=== PATIENT | female | born 1995 | race African-American/Black ===

== ENCOUNTER 2020-12-22 15:27 | Inpatient (IN) | payer OTHER, SELFPAY ==
[2020-12-22] VITALS (17 sets, daily range): BP systolic 116–141; BP diastolic 76–88; PULSE 117–145; RESP 12–32; TEMP 36.2–36.8; O2SAT 98–100
--- NOTE | ~2020-12-22 | US_ITS ---
CORRECTED REPORT EXAM DESCRIPTION DESCRIPTION AND TECHNIQUE UPDATED. 12/23/2020 US OB <= US OB <=14 wk fetus w TV DATE: 12/23/2020 08:07 INDICATION: Assess viability TECHNIQUE: Real-time imaging and Doppler analysis COMPARISON: None FINDINGS: Uterus measures 9.7 cm height, 6.6 cm AP and 6.7 cm transverse dimension. A pole is identified with heart rate of 173 bpm. Yolk sac is identified. There is a heterogeneous hypoechoic chorionic bump projecting into the gestational sac, measuring up to 9 x 14 x 18 mm dimension. This is reported to occur in approximately 0.15% to 0.7% . This may be due to a small hematoma. One report in the literature (Journal of Ultrasound In Medicine: A case of a chorionic bump: New sonographic-histopathologic findings with review of the literature; 04/05/2017) suggested extensive necrosis within a decidualized endometrium as an important component in the formation of this abnormality. There is dispute as to whether or not this entity is associated with a poor prognosis for the . Follow-up ultrasound imaging is recommended. Bruin-rump length measures 2.14 cm, consistent with estimated gestational age of 8 weeks 5 days +/- 5 days; REENA by ultrasound is 07/30/2021, compared to 07/28/2021 by LMP Right ovary 2.4 x 1.6 x 1.5 cm. Left ovary 2.3 x 2.4 x 2.4 cm. No pelvic mass or abnormal pelvic fluid collection is evident. IMPRESSION: Chorionic bump; see discussion above. Follow-up ultrasound imaging is recommended. Estimated gestational age of 8 weeks 5 days +/- 5 days; REENA by ultrasound is 07/30/2021 Reviewed, dictated and finalized at [facility]. Reviewed, dictated and finalized at location [facility]. [employer] MTDD
--- NOTE | ~2020-12-22 | US_ITS ---
EXAMINATION: US right upper quadrant EXAM DATE: 12/23/2020 08:00 INDICATION: Abnormal liver function tests. With nausea and emesis, 8 weeks . TECHNIQUE: Multiple grayscale and Doppler images of the abdomen right upper quadrant were obtained (b y a technologist who performed the scan) and subsequently reviewed. There is no prior study for niranjan see. FINDINGS: The pancreatic head and body are normal in appearance. The pancreatic tail is not visualized. The l iver has normal echogenicity and contour. There are no focal liver lesions identified. There is no evidence of intrahepatic biliary duct dilation. Portal venous flow was seen in the hepatopedal, nor mal direction and has normal Doppler waveform. No right-sided hydronephrosis. Common bile duct measures 2 mm, which is normal. The gallbladder wall is normal in thickness, with ex pected amount of distention. No sonographic evidence of pericholecystic fluid. There is probably so me thick bile in the gallbladder. No focal stones or polyps identified. Technologist performing exam reports patient did not demonstrate sonographic Villagran's sign. Please note that this sign is less r eliable in patients who have received pain medication. IMPRESSION: 1. Gallbladder with layering proteinaceous fluid. 2. No stones or cholecystitis. Reviewed, dictated and finalized at [facility]. [employer]
--- NOTE | 2020-12-22 15:52 | PC.NURSE ---
pt going from hospital to hospital each and every time she becomes nauseaous
--- NOTE | 2020-12-22 15:53 | ED.GENADULT ---
HPI - General Adult General Chief complaint: Nausea/Vomiting/Diarrhea <Latisha Huff PA-C - Last Filed: 01/15/21 12:32> Stated complaint: 8 weeks/nausea <CHRISTIN Francis Last Filed: 01/15/21 12:32> Time Seen by Provider: 12/22/20 15:51 <CHRISTIN Francis Last Filed: 01/15/21 12:32> Source: patient <CHRISTIN Francis Last Filed: 01/15/21 12:32> Mode of arrival: ambulatory <CHRISTIN Francis Last Filed: 01/15/21 12:32> Limitations: no limitations <CHRISTIN Francis Last Filed: 01/15/21 12:32> History of Present Illness HPI narrative: 25-year-old female who is 8 weeks and 5 days based on last menstrual period, she has not seen her OB yet. She has had chronic vomiting for at least 2 weeks. She was hospitalized at [facility] last week for the same complaint she was prescribed famotidine, B12 and metoclopramide. She states that she takes these medications but she vomits them right back up. This is her second she did not have this problem with her first . She also states that she had two episodes of diarrhea in the last 2 days. She denies any cramping or vaginal discharge bleeding. She does not have an OB appointment till January 15. <Latisha Huff PA-C - Last Filed: 01/15/21 12:32> Onset (ago): week(s) <Latisha Huff PA-C - Last Filed: 01/15/21 12:32> Related Data Allergies/adverse reactions: Allergies Allergy/AdvReac Type Severity Reaction Status Date / Time No Known Allergies Allergy Unverified 10/05/16 08:18 <CHRISTIN Francis Last Filed: 01/15/21 12:32> Review of Systems Review of Systems: All systems reviewed & are unremarkable except as noted in HPI and below <Latisha Huff PA-C - Last Filed: 01/15/21 12:32> [facility] Past Medical History Medical History: Medical History (Updated 12/23/20 @ 08:48 by Shilpi Mcginnis MD) (normal spontaneous vaginal delivery) <Latisha Huff PA-C - Last Filed: 01/15/21 12:32> Surgical History Surgical History: Surgical History (Updated 12/22/20 @ 18:16 by Paul Sams MD) H/O removal of cyst LEFT UPPER EYELID <Latisha Huff PA-C - Last Filed: 01/15/21 12:32> Family History Family History: Family History (Updated 12/22/20 @ 18:18 by Paul Sams MD) Father Well adult Mother Well adult Sibling Well adult Sibling Well adult <Latisha Huff PA-C - Last Filed: 01/15/21 12:32> Social History Social History: Social History (Updated 12/22/20 @ 18:19 by Paul Sams MD) Social History: Single. 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 Alcohol intake: never Substance use: never Gender identity (if verbalized by the patient): Female Spiritual care concerns: No <Latisha Huff PA-C - Last Filed: 01/15/21 12:32> Exam Const: General: no acute distress and alert <Latisha Huff PA-C - Last Filed: 01/15/21 12:32> Orientation/consciousness: patient oriented x3 <Latisha Huff PA-C - Last Filed: 01/15/21 12:32> HENMT: Mouth: Yes moist mucous membranes <Latisha Huff PA-C - Last Filed: 01/15/21 12:32> Eyes: Conjunctivae: conjunctivae normal <CHRISTIN Francis Last Filed: 01/15/21 12:32> Pupils: Equal, round and reactive pupils present <Latisha Huff PA-C - Last Filed: 01/15/21 12:32> Resp: Effort & Inspection: normal respiratory effort <Latisha Huff PA-C - Last Filed: 01/15/21 12:32> Auscultation: clear to auscultation bilaterally <Latisha Huff PA-C - Last Filed: 01/15/21 12:32> Cardio: Rate: tachycardic (128) <CHRISTIN Francis Last Filed: 01/15/21 12:32> Rhythm: regular rhythm <CHRISTIN Francis Last Filed: 01/15/21 12:32> GI: GI Palp: Yes Soft to palpation and Yes Tenderness to palpation present (GI) (difusely tender to light palpation) <CHRISTIN Francis
[2020-12-22 16:03] LABS: Basophils Percent Auto 0.2 % (0.2-1.2); Eosinophils Percent Auto 0.2 % (0-4.4); Hematocrit 39.9 % (37.0-47.0); Hemoglobin 13.8 g/dL (12.0-15.0); Immature Granulocyte Absolute 0.07 K/mm3 (0.00-0.031); Immature Granulocyte Percent A 0.6 % (0-0.5); Lymphocytes Absolute Auto 1.03 K/mm3 (0.9-3.2); Lymphocytes Percent Auto 8.4 % (18.3-44.2); Mean Corpuscular HGB Conc 34.6 g/dl (32-36); Mean Corpuscular Hemoglobin 29.5 pg (26-34); Mean Corpuscular Volume 85.3 fl (80-100); Mean Platelet Volume 9.9 fl (7.4-10.4); Monocytes Absolute Auto 0.9 K/mm3 (0.1-0.6); Monocytes Percent Auto 7.1 % (2.6-8.5); Neutrophils Absolute Auto 10.3 K/mm3 (1.3-6.7); Neutrophils Percent Auto 83.5 % (45.5-73.1); Platelet Count Result 278 k/mm3 (150-375); Red Blood Count 4.68 M/mm3 (4.2-5.4); Red Cell Distribution Width 11.2 % (11.5-14.5); White Blood Count 12.3 K/mm3 (4.5-10.0)
[2020-12-22 16:15] LABS: Alanine Aminotransferase 495 U/L (4-35); Albumin Level 4.4 g/dL (3.5-5.1); Alkaline Phosphatase 96 U/L (38-126); Anion Gap 9 mmol/L (8-16); Aspartate Amino Transferase 231 U/L (14-36); Bilirubin,Total 1.3 mg/dL (0.2-1.3); Blood Urea Nitrogen 17 mg/dL (7-17); Calcium 9.7 mg/dL (8.4-10.2); Carbon Dioxide 25 mmol/L (22-30); Chloride 97 mmol/L (98-107); Estimated CRCL calculation 130 ml/min; Estimated Glomerular Filt Rate > 60; Glucose 104 mg/dL (65-105); Lipase 486 U/L (23-300); Potassium 3.2 mmol/L (3.4-5.0); Sodium 131 mmol/L (137-145)
[2020-12-22] MEDS: DEXTROSE 5%/0.9% SOD CHL 1,000 ML 999 ML IV CONT (16:45)
[2020-12-22 17:23] LABS: Add Urine Microscopic? YES; Appearance Urine Clear (Clear); Bacteria Urine Trace /hpf; Bilirubin Urine Negative (Negative); Blood Urine Negative (Negative); Color Urine Amber (Yellow); Glucose Urine UA 3+ mg/dL (Negative); Ketones Urine 2+ mg/dL (Negative); Leukocyte Esterase Ur Negative LEU/UL (Negative); Mucus Urine Heavy /lpf; Nitrate Urine Negative (Negative); Protein Urine 2+ mg/dL (Negative); RBC Urine 0-2 /hpf (0-2); Specific Grav Ur 1.026 (1.001-1.035); Squamous Epithelial Cell Urine Rare /hpf (Few); WBC Urine 0-3 /hpf
--- NOTE | 2020-12-22 18:10 | PM.IMHP ---
H&P: HPI History of Present Illness Date/Time: 12/22/20 18:10 Chief Complaint: nausea with emesis Narrative: Klaus Valdivia is a 25 year old female who is currently 8 weeks and is /Ab0. About 2 weeks ago she began having nausea with emesis. She tried Zofran and then Reglan without success. She has yet to see her primary OB for appointment. However she has been taking vitamins. Over the last several days she has been sipping cold water and has been unable to keep anything else down. She has lost several lb in the last 8 weeks. With her vomiting she has experienced some tingling in the perioral region and in her feet. She has no dizziness. She has no fevers or chills. No headache. No sinus or ear congestion. No cough. No shortness of breath. No chest pain. She has epigastric pain only with retching. No abdominal pain otherwise. Over the last 2 days she has had a couple of loose stools per day. She denied dysuria hematuria or back pain. She denied hematemesis or blood in urine or stool. She denied drug alcohol and tobacco use. She denied recent travel exposure to ill individuals. She has been laid off work for the last couple of weeks so has not been out much. Review of Systems Review of Systems: All systems reviewed & are unremarkable except as noted in HPI and below [facility] Surgical History Surgical History (Updated 12/22/20 @ 18:16 by Paul Sams MD) H/O removal of cyst LEFT UPPER EYELID Family History Family History (Updated 12/22/20 @ 18:18 by Paul Sams MD) Father Well adult Mother Well adult Sibling Well adult Sibling Well adult Social History Social History (Updated 12/22/20 @ 18:19 by Paul Sams MD) Social History: Single. 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 Normal effort. HEART: NL S1/S2, regular, no murmur ABDOMEN: BS+, soft, MILD TENDERNESS TO PALPATION IN THE EPIGASTRIUM AND BILATERAL UPPER QUADRANTS EXTREMITIES: No cyanosis, edema, or clubbing. Pedal pulses intact. NEUROLOGIC: CN intact and symmetric to inspection. MUSCULOSKELETAL: Tone and strength symmetric. PSYCH: Alert. Oriented to person, place, and time. H&P: Results Labs Labs: Short CBC 12/22/20 Range/Units 15:55 WBC 12.3 H (4.5-10.0) K/mm3 Hgb 13.8 (12.0-15.0) g/dL Hct 39.9 (37.0-47.0) % Plt Count 278 (150-375) k/mm3 BMP 12/22/20 15:55 Sodium 131 L Potassium 3.2 L Chloride 97 L Carbon Dioxide 25 BUN 17 Creatinine 0.50 L Glucose 104 Calcium 9.7 Liver Function 12/22/20 Range/Units 15:55 Total Bilirubin 1.3 (0.2-1.3) mg/dL AST 231 H (14-36) U/L ALT 495 H (4-35) U/L Alkaline Phosphatase 96 (38-126) U/L Albumin 4.4 (3.5-5.1) g/dL Urine 12/22/20 Range/Units 17:01 Urine Color Carmen (Yellow) Urine Appearance Clear (Clear) Urine pH 6.0 (5.0-9.0) Ur Specific [place] 1.026 (1.001-1.035) Urine Protein 2+ H (Negative) mg/dL Urine Glucose (UA) 3+ H (Negative) mg/dL Assessment and Plan Assessment and plan (1) Hyperemesis gravidarum: Code(s): O21.0 - Mild hyperemesis gravidarum Status: Acute Assessment and Plan: Similar issues, though less severe, with her 1st about 4 ye
[2020-12-22] MEDS: SODIUM CHLORIDE 0.9% IV 1,000 ML 999 ML IV CONT (18:17)
[2020-12-22] MEDS: DEXTROSE 5%/0.9% SOD CHL 1,000 ML 100 ML IV CONT (18:21)
--- NOTE | 2020-12-22 18:21 | PC.NURSE ---
vorb for d5 ns, 1l bolus from noel beltre asked to change fluid from d5ns to 1l ns pt received 300ml of the 2nd bag of d5 ns
--- NOTE | 2020-12-22 18:30 | PC.NURSE ---
[address] Mcginnis per phone. Pt will be admitted to OB from ER for vomiting, elevated liver enzymes per Dr. Sams with Dr. Mcginnis/Sapna consulting. Orders for ultrasound in AM and repeat of labs (ordered per Dr. Sams).
--- NOTE | 2020-12-22 19:50 | PC.NURSE ---
Admission orders clarified per Dr. Sams.
--- NOTE | 2020-12-22 19:50 | OBADM ---
This patient, Klaus Valdivia, admitted to the OB room OB Post 117 for observation. Patient/family oriented to hospital policies and general routines including ID bracelet, bed and alarms, visiting hours, pain management, procedures, bathroom and other care routines, personal items, smoking policy, room service/diet, and visiting hours. Patient/Family are encouraged to report perceived risks to care and to ask questions if they do not understand what they are told or what they should do.
[2020-12-22] MEDS: DEXTROSE 5%/0.9% SOD CHL 1,000 ML 50 ML IV CONT (20:40)
[2020-12-22] MEDS: PROMETHAZINE HCL 25 MG/ML AMPUL 12.5 MG IV PUSH (20:45)
[2020-12-22] MEDS: PYRIDOXINE HCL 100 MG/ML VIAL (*SPC) 50 MG IV PUSH (20:55)
[2020-12-22] MEDS: THIAMINE HCL 200 MG/2 ML VIAL 100 MG IV PUSH (20:59)
[2020-12-22] MEDS: FOLIC ACID 1 MG/0.2 ML INJ IV PUSH (21:04)
[2020-12-22] MEDS: MAGNESIUM SULF 2 GM/WATER 50ML 2 GM/50 ML BAG IVPB (21:11)
[2020-12-23] VITALS (8 sets, daily range): BP systolic 101–129; BP diastolic 56–70; PULSE 98–113; RESP 13–15; TEMP 36.4–37; BMI 26.6
--- NOTE | 2020-12-23 01:15 | PC.NURSE ---
Addendum entered by Osito Overton RN 12/23/20 01:17: TIME NOTED 1899 Original Note: 1899 Pt arrives to OB via wheelchar. Pt seen in ER with nausea vomiting. Pt states she has had intermittent vomiting for past 2 weeks. Pt denies any pain on arrival. Pt has nausea currently. States vomited once in ER. No vomiting currently.
[2020-12-23] MEDS: PROMETHAZINE HCL 25 MG/ML AMPUL 12.5 MG IV PUSH ×4 (02:28→19:43)
--- NOTE | 2020-12-23 02:30 | PC.NURSE ---
Pt has been sleeping. No vomiting at this time. Pt states nausea is better with Phenergan and when she is sleeping.
--- NOTE | 2020-12-23 05:08 | PC.NURSE ---
Pt continues to sleep. Lab work drawn per order.
[2020-12-23 05:12] LABS: Hematocrit 33.7 % (37.0-47.0); Hemoglobin 11.3 g/dL (12.0-15.0); Mean Corpuscular HGB Conc 33.5 g/dl (32-36); Mean Corpuscular Hemoglobin 29.7 pg (26-34); Mean Corpuscular Volume 88.7 fl (80-100); Mean Platelet Volume 10.2 fl (7.4-10.4); Platelet Count Result 219 k/mm3 (150-375); Red Cell Distribution Width 11.2 % (11.5-14.5); White Blood Count 9.6 K/mm3 (4.5-10.0)
[2020-12-23 05:38] LABS: Alanine Aminotransferase 446 U/L (4-35); Albumin Level 3.4 g/dL (3.5-5.1); Alkaline Phosphatase 68 U/L (38-126); Anion Gap 4 mmol/L (8-16); Aspartate Amino Transferase 197 U/L (14-36); Bilirubin,Total 1.1 mg/dL (0.2-1.3); Blood Urea Nitrogen 12 mg/dL (7-17); Calcium 8.6 mg/dL (8.4-10.2); Carbon Dioxide 26 mmol/L (22-30); Chloride 105 mmol/L (98-107); Estimated CRCL calculation 130 ml/min; Estimated Glomerular Filt Rate > 60; Glucose 106 mg/dL (65-105); Lipase 588 U/L (23-300); Potassium 3.4 mmol/L (3.4-5.0); Sodium 135 mmol/L (137-145)
[2020-12-23 05:39] LABS: Alanine Aminotransferase 456 U/L (4-35); Albumin Level 3.4 g/dL (3.5-5.1); Alkaline Phosphatase 69 U/L (38-126); Anion Gap 5 mmol/L (8-16); Aspartate Amino Transferase 209 U/L (14-36); Bilirubin,Total 1.1 mg/dL (0.2-1.3); Blood Urea Nitrogen 11 mg/dL (7-17); Calcium 8.7 mg/dL (8.4-10.2); Carbon Dioxide 26 mmol/L (22-30); Chloride 104 mmol/L (98-107); Estimated CRCL calculation 130 ml/min; Estimated Glomerular Filt Rate > 60; Glucose 105 mg/dL (65-105); Phosphorus 3.4 mg/dL (2.5-4.5); Potassium 3.3 mmol/L (3.4-5.0); Sodium 135 mmol/L (137-145)
[2020-12-23 06:26] LABS: Hepatitis B Surface Antigen Negative (Negative)
[2020-12-23 06:27] LABS: Thyroid Stimulating Hormone Reflex < 0.015 uIU/mL (0.465-4.68)
[2020-12-23 06:31] LABS: HAV RESULT Negative (Negative)
[2020-12-23 06:44] LABS: Hepatitis C Virus Antibody Negative (Negative)
[2020-12-23 06:54] LABS: Free T4 Free Thyroxine Reflex 5.65 ng/dL (0.78-2.19)
--- NOTE | 2020-12-23 07:28 | PC.NURSE ---
Pt transported to US per wheelchair
--- NOTE | 2020-12-23 08:44 | PM.IMHP ---
H&P: HPI History of Present Illness Date/Time: 12/23/20 08:44 Chief Complaint: nausea and vomiting Narrative: Klaus Valdivia is a 25 year old female at 8 weeks EGA here with severe hyperemesis. Onset of N/V 2 weeks ago, so she went to her local ER x 2 and received fluids and nausea meds. States Tay did not work. She continued to have N/V and went to [facility] due to being high risk center. She was admitted for a day and received fluids and initially did well with B6, pepcid, and reglan. She was home for a day and again with N/V. She thought it would get better so stayed home for a week and continued her meds. She delivered [address] Alejo so decided to come to ER here last pm. Does not complain of pain unless she is vomiting. No fevers. No other complaints except fatigue. Best guess is she has lost about 10 pounds in last 2 weeks. [facility] Past Medical History Medical History (Updated 12/23/20 @ 08:48 by Shilpi Mcginnis MD) (normal spontaneous vaginal delivery) Surgical History Surgical History (Updated 12/22/20 @ 18:16 by Paul Sams MD) H/O removal of cyst LEFT UPPER EYELID Family History Family History (Updated 12/22/20 @ 18:18 by Paul Sams MD) Father Well adult Mother Well adult Sibling Well adult Sibling Well adult Social History Social History (Updated 12/22/20 @ 18:19 by Paul Sams MD) Social History: Single. 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 Alcohol intake: never Substance use: never Gender identity (if verbalized by the patient): Female Meds Home Medications and Allergies Home Medications Medication Instructions Recorded Confirmed Type metoclopramide HCl 5 mg PO TID PRN 12/23/20 12/23/20 History Allergies Allergy/AdvReac Type Severity Reaction Status Date / Time No Known Allergies Allergy Unverified 10/05/16 08:18 Vital Signs Vital Signs - 24 hr 12/22/20 15:33 12/22/20 16:37 12/22/20 16:45 Temperature 97.1 F L Pulse Rate 145 H 122 H 118 H Respiratory Rate 18 26 H 18 Blood Pressure 116/85 135/84 Pulse Oximetry 98 12/22/20 16:46 12/22/20 17:01 12/22/20 17:02 Temperature Pulse Rate 117 H 138 H 130 H Respiratory Rate 23 H 25 H 29 H Blood Pressure 139/88 Pulse Oximetry 100 100 12/22/20 17:15 12/22/20 17:16 12/22/20 17:30 Temperature Pulse Rate 126 H 123 H 129 H Respiratory Rate 17 22 H 29 H Blood Pressure 136/86 Pulse Oximetry 100 100 100 12/22/20 17:31 12/22/20 17:45 12/22/20 17:46 Temperature Pulse Rate 132 H 120 H 120 H Respiratory Rate 32 H 16 19 Blood Pressure 119/80 133/86 Pulse Oximetry 100 100 100 12/22/20 18:00 12/22/20 18:01 12/22/20 18:15 Temperature Pulse Rate 121 H 118 H 118 H Respiratory Rate 19 15 12 Blood Pressure 128/84 121/85 Pulse Oximetry 100 100 100 12/22/20 18:16 12/22/20 19:08 12/23/20 00:05 Temperature 98.2 F Pulse Rate 131 H 119 H 106 H Respiratory Rate 27 H Blood Pressure 141/76 H 115/61 Pulse Oximetry 100 12/23/20 02:21 12/23/20 05:03 12/23/20 07:07 Temperature 97.9 F 98.2 F Pulse Rate 108 H 101 H Respiratory Rate Blood Pressure 101/57 L 129/70 Pulse Oximetry 12/23/20 08:03 Temperature 98.4 F Pulse Rate 113 H Respiratory Rate 15 Blood Pressure 126/68 Pulse Oximetry Exam Const: General: cooperative, comfortable and no acute distress Nutritional Appearance: average body habitus GI: Inspection: normal to inspection and distended GI Palp: Yes abdominal tenderness (mild upper) H&P: Results Labs Labs: Short CBC 12/22/20 12/23/20 Range/Units 15:55 04:48 WBC 12.3 H 9.6 (4.5-10.0) K/mm3 Hgb 13.8 11.3 L (12.0-15.0) g/dL Hct 39.9 33.7 L (37.0-47.0) % Plt Count 278 219 (150-375) k/mm3 BMP 12/22/20 12/23/20 12/23/20 15:55 04:48 04:48 Sodium 131 L 135 L 135 L Potassium 3.2 L 3.4 3.3 L Chloride 97 L 105 10
[2020-12-23] MEDS: PYRIDOXINE HCL 100 MG/ML VIAL (*SPC) 50 MG IV PUSH (09:18)
[2020-12-23] MEDS: FOLIC ACID 1 MG/0.2 ML INJ IV PUSH (09:18)
[2020-12-23] MEDS: THIAMINE HCL INJ 100 MG, FOLIC ACID INJ 1 MG, MULTIVITAMINS-12 INJ VIAL 1 5 ML, MULTIVI... 200 MG IV CONT (09:28)
--- NOTE | 2020-12-23 10:04 | PC.NURSE ---
0845- at bedside to assess pt, orders received. POC discussed with pt
--- NOTE | 2020-12-23 10:04 | PC.NURSE ---
Dr. Garcia at bedside to assess pt, no further orders received.
--- NOTE | 2020-12-23 12:52 | PM.IMPN ---
Progress Note: A&P Assessment and Plan (1) Hyperemesis gravidarum: Code(s): O21.0 - Mild hyperemesis gravidarum Status: Acute Assessment and Plan: Similar issues, though less severe, with her 1st about 4 years ago Treat with IV pyridoxine Banana bag and IV Phenergan Hopeful DC when she tolerates some diet orally (2) 2, currently : Code(s): Z34.90 - Encounter for supervision of normal , unspecified, unspecified trimester Status: Acute Assessment and Plan: According to her history she is approximately 9 weeks (3) Abnormal liver enzymes: Code(s): R74.8 - Abnormal levels of other serum enzymes Status: Acute Assessment and Plan: Suspect due to hyperemesis gravidarum Doubt acute fatty liver of Doubt acute cholecystitis or choledocholithiasis (4) Abnormal serum lipase level: Code(s): R74.8 - Abnormal levels of other serum enzymes Status: Acute Assessment and Plan: Likely due to intractable vomiting Subjective Date/time seen: 12/23/20 12:52 Interval history: Shea is a 25 year old female at 8 weeks EGA here with severe hyperemesis, pathology appears unlikely nausea vomiting secondary to early and exaggerated response. Pt is on a banana bag some nausea no abdominal pain today, continue to observe Review of Systems Review of Systems: All systems reviewed & are unremarkable except as noted in HPI and below Exam Narrative: Exam Narrative: Younger female tired and weak, dry appearing CHEST: Clear to auscultation. Normal effort. HEART: NL S1/S2, regular, no murmur ABDOMEN: BS+, soft NT EXTREMITIES: No cyanosis, edema, or clubbing. Pedal pulses intact. NEUROLOGIC: CN intact and symmetric to inspection. MUSCULOSKELETAL: Tone and strength symmetric. PSYCH: Alert. Oriented to person, place, and time. Objective Data Vital Signs Vital Signs: Vital Signs - 24 hr 12/22/20 15:33 12/22/20 16:37 12/22/20 16:45 Temperature 36.2 C L Pulse Rate 145 H 122 H 118 H Respiratory Rate 18 26 H 18 Blood Pressure 116/85 135/84 Pulse Oximetry 98 12/22/20 16:46 12/22/20 17:01 12/22/20 17:02 Temperature Pulse Rate 117 H 138 H 130 H Respiratory Rate 23 H 25 H 29 H Blood Pressure 139/88 Pulse Oximetry 100 100 12/22/20 17:15 12/22/20 17:16 12/22/20 17:30 Temperature Pulse Rate 126 H 123 H 129 H Respiratory Rate 17 22 H 29 H Blood Pressure 136/86 Pulse Oximetry 100 100 100 12/22/20 17:31 12/22/20 17:45 12/22/20 17:46 Temperature Pulse Rate 132 H 120 H 120 H Respiratory Rate 32 H 16 19 Blood Pressure 119/80 133/86 Pulse Oximetry 100 100 100 12/22/20 18:00 12/22/20 18:01 12/22/20 18:15 Temperature Pulse Rate 121 H 118 H 118 H Respiratory Rate 19 15 12 Blood Pressure 128/84 121/85 Pulse Oximetry 100 100 100 12/22/20 18:16 12/22/20 19:08 12/23/20 00:05 Temperature 36.8 C Pulse Rate 131 H 119 H 106 H Respiratory Rate 27 H Blood Pressure 141/76 H 115/61 Pulse Oximetry 100 12/23/20 02:21 12/23/20 05:03 12/23/20 07:07 Temperature 36.6 C 36.8 C Pulse Rate 108 H 101 H Respiratory Rate Blood Pressure 101/57 L 129/70 Pulse Oximetry 12/23/20 08:03 Temperature 36.9 C Pulse Rate 113 H Respiratory Rate 15 Blood Pressure 126/68 Pulse Oximetry Intake/Output Intake/Output: Intake & Output 12/20/20 12/21/20 12/22/20 12/23/20 23:59 23:59 23:59 23:59 Intake Total 2300 500 Output Total 200 300 Balance 2100 200 Meds/Results Medications: Active Medications Generic Name Dose Route Start Last Admin Trade Name Freq PRN Reason Stop Dose Admin Folic Acid 1 mg 12/23/20 09:00 12/23/20 09:18 Folic Acid 1 Mg/0.2 Ml Inj IV PUSH 1 mg QAM BEKAH Administration Amino Acids/Electrolytes/Dextrose 2,000 mls @ 80 mls/hr 12/23/20 14:00 Clinimix E 4.25%/5% Solution IV CONT .Q24H
--- NOTE | 2020-12-23 14:41 | PC.NURSE ---
1405- called to ask if is aware of TSH and T4 lab results. called, she stated labs are not WNL due to hyperemesis and pt does not need to be treated.
[2020-12-23] MEDS: AMINO ACIDS 4.25%/D5W/LYTES/CA 2,000 ML 80 ML IV CONT (15:28)
[2020-12-24] VITALS (7 sets, daily range): BP systolic 112–141; BP diastolic 53–118; PULSE 91–105; RESP 15–16; TEMP 36.8–37.2
[2020-12-24] MEDS: PROMETHAZINE HCL 25 MG/ML AMPUL 12.5 MG IV PUSH ×4 (01:55→19:52)
--- NOTE | 2020-12-24 01:59 | PC.NURSE ---
Pt has been sleeping. No complaints of pain or nausea. pt to call out if she needs anything.
[2020-12-24 05:48] LABS: Alanine Aminotransferase 340 U/L (4-35); Albumin Level 3.2 g/dL (3.5-5.1); Alkaline Phosphatase 57 U/L (38-126); Amylase 124 U/L (30-110); Anion Gap 5 mmol/L (8-16); Aspartate Amino Transferase 113 U/L (14-36); Bilirubin,Total 0.7 mg/dL (0.2-1.3); Blood Urea Nitrogen 12 mg/dL (7-17); Calcium 9.1 mg/dL (8.4-10.2); Carbon Dioxide 26 mmol/L (22-30); Chloride 105 mmol/L (98-107); Estimated CRCL calculation 158 ml/min; Estimated Glomerular Filt Rate > 60; Glucose 85 mg/dL (65-105); Lipase 539 U/L (23-300); Potassium 3.8 mmol/L (3.4-5.0); Sodium 136 mmol/L (137-145)
[2020-12-24 06:27] LABS: Magnesium 1.7 mg/dL (1.6-2.3)
--- NOTE | 2020-12-24 07:40 | PM.OBPNVD ---
OB - PN: Subj Subjective Date/time seen: 12/24/20 07:40 Interval history: Patient with mild nausea this am. She denies pain. OB - PN: Obj Data Labs CBC & Chem 7: 12/23/20 04:48 12/24/20 05:18 Labs: Laboratory Results - last 24 hr 12/24/20 12/24/20 05:18 06:00 Sodium 136 L Potassium 3.8 Chloride 105 Carbon Dioxide 26 Anion Gap 5 L BUN 12 Creatinine 0.40 L Estim Creat Clear Calc 158 Estimated GFR > 60 Glucose 85 Calcium 9.1 Magnesium 1.7 Total Bilirubin 0.7 AST 113 H ALT 340 H Alkaline Phosphatase 57 Total Protein 6.0 L Albumin 3.2 L Amylase 124 H Lipase 539 H Imaging Radiologist's impression: Impressions Upper Quadrant Ultrasound 12/23/20 08:08 IMPRESSION: 1. Gallbladder with layering proteinaceous fluid. 2. No stones or cholecystitis. Obstetrics Ultrasound 12/23/20 08:09 IMPRESSION: Chorionic bump; see discussion above. Follow-up ultrasound imaging is recommended. Estimated gestational age of 8 weeks 5 days +/- 5 days; REENA by ultrasound is 07/30/2021 OB - PN A/P Assessment and Plan (1) Hyperemesis gravidarum: Code(s): O21.0 - Mild hyperemesis gravidarum Status: Acute Assessment and Plan: VSS pulse in 90's since yesterday early afternoon. LFT's significantly down. Lipase down some. Other labs ok. Will slowly start full liquids today. Repeat LFTs, lipase, and thyroid function tomorrow. Time Spent With Patient Time: Total time spent is greater than 50% in coordination of care (as documented) at patient's floor/unit and/or counseling patient: Exam Const: General: comfortable and no acute distress GI: GI Palp: No abdominal tenderness
[2020-12-24] MEDS: THIAMINE HCL 200 MG/2 ML VIAL 100 MG IV PUSH (08:43)
[2020-12-24] MEDS: FOLIC ACID 1 MG/0.2 ML INJ IV PUSH (08:44)
[2020-12-24] MEDS: PYRIDOXINE HCL 100 MG/ML VIAL (*SPC) 50 MG IV PUSH (08:44)
--- NOTE | 2020-12-24 09:42 | PCDIET ---
Nutrition Follow-Up Complete: Nutrition Diagnosis: Inadequate oral intake related to hyperemesis as evidenced by nausea/vomiting and reported weight loss. Nutrition Goal: Patient to meet estimated nutritional needs and stabilize weight. Goal in progress. Patient remains on Clinimix E 4.25/5 at 80mL/hr with MD order to start full liquid diet today. Last recorded weight is 72.5 kg (12/22/20). Recommend obtaining new weight. Bowel Motility: Last documented BM on 12/21/20. Labs Reviewed: Hgb (11.3), Hct (33.7), Na (136), Cr (0.4), Lipase (539) Meds Noted: Folic Acid, Phenergan, Vitamin B6, Thiamine Additional Notes: Noted LFTs decreased today. Patient may best tolerate small, frequent meals with avoidance of high fat items. Would continue Clinimix until adequate oral intake is established. If intakes minimal, continue to recommend addition of 250mL 20% lipid daily for additional 500kcal and 55g fat. Nutrition Monitoring and Evaluation: Follow up every Wednesday/Wednesday.
[2020-12-24] MEDS: AMINO ACIDS 4.25%/D5W/LYTES/CA 2,000 ML 80 ML IV CONT (09:45)
--- NOTE | 2020-12-24 13:58 | PC.NURSE ---
1106- Spoke with Dr. Mcginnis, patient complaint of orange/yellow vaginal discharge. No new orders, will continue to monitor.
--- NOTE | 2020-12-24 14:07 | PM.IMPN ---
Progress Note: A&P Assessment and Plan (1) Abnormal serum lipase level: Code(s): R74.8 - Abnormal levels of other serum enzymes Status: Acute Assessment and Plan: Downtrending Likely dehydration due to n/v unable to feed Continue to monitor Supportive care IV hydration Daily I/O's (2) Abnormal liver enzymes: Code(s): R74.8 - Abnormal levels of other serum enzymes Status: Acute Assessment and Plan: Likely secondary to /hyperemesis gravidarum Alk phos is wnl ALT/AST 2:1 Also downtrending (3) Hyperemesis gravidarum: Code(s): O21.0 - Mild hyperemesis gravidarum Status: Acute Assessment and Plan: Advance diet as tolerated Supportive care Hydration (4) 2, currently : Code(s): Z34.90 - Encounter for supervision of normal , unspecified, unspecified trimester Status: Acute Assessment and Plan: Appreciate ticker wirer note 8 weeks gestation Will follow up in the outpatient setting with her usual doctor Subjective Date/time seen: 12/24/20 14:07 States that feels much better No new issues overnight Review of Systems Review of Systems: Narrative: Feeling some nausea, no new issues overnight. Constitutional: Comments: no fevers, no rigors, no chills. ENT: Comments: no nasal congestion, no throat pain. Cardiovascular: Comments: no pnd, no orthopnea, no chest pain. Respiratory: Comments: no cough, no sputum production. Gastrointestinal: Comments: some nausea to liquids Musculoskeletal: Comments: no muscle pain, no joint pain. Integumentary/Breasts: Comments: no rashes Neurologic: Comments: no tingling Exam Narrative: Exam Narrative: Lying in bed Const: General: cooperative, healthy appearing, comfortable, no acute distress, alert, awake and Physically active Nutritional Appearance: average body habitus Orientation/consciousness: patient oriented x3 Limitations: no limitations HENMT: Head: normocephalic Ears: hearing grossly normal bilaterally General nose exam: Normal external nose present Face and sinus: normal facial exam Eyes: Pupils: Equal, round and reactive pupils present EOM: EOMs intact bilaterally Neck: Neck: no lymphadenopathy, supple and no JVD Resp: Effort & Inspection: able to speak in complete sentences Auscultation: clear to auscultation bilaterally Cardio: Jugular venous distension: no JVD Rate: regular rate Rhythm: regular rhythm GI: GI Palp: Yes Soft to palpation and Yes No hepatosplenomegaly present Skin: Rashes: no rashes Neuro: General: CN's II-XI intact bilaterally Cranial nerves: Yes CN's II-XII intact bilaterally and Yes Equal, round and reactive pupils present Cognition (Neuro): normal cognition Speech: normal speech Motor exam (neuro): 5/5 motor strength present throughout Extrem: General: no pedal edema Objective Data Vital Signs Vital Signs: Vital Signs - 24 hr 12/23/20 19:00 12/23/20 19:46 12/24/20 05:21 Temperature 98.6 F Pulse Rate 98 94 Respiratory Rate Blood Pressure 109/56 L 114/62 12/24/20 07:44 12/24/20 08:30 12/24/20 13:44 Temperature 99.0 F Pulse Rate 91 105 H Respiratory Rate 16 Blood Pressure 118/53 L 112/55 L Intake/Output Intake/Output: Intake & Output 12/21/20 12/22/20 12/23/20 12/24/20 23:59 23:59 23:59 23:59 Intake Total 2300 500 2100 Output Total 200 1300 900 Balance 2100 -800 1200 Meds/Results Medications: Active Medications Generic Name Dose Route Start Last Admin Trade Name Alison PRN Reason Stop Dose Admin Folic Acid 1 mg 12/23/20 09:00 12/24/20 08:44 Folic Acid 1 Mg/0.2 Ml Inj IV PUSH 1 mg QAM BEKAH Administration Amino Acids/Electrolytes/Dextrose 2,000 mls @ 80 mls/hr 12/23/20 14:00 12/24/20 09:45 Clinimix E 4.25%/5% Solution IV CONT 80 mls/hr .Q24H BEKAH Administration Protocol Promethazine HCl 12.5 mg 12/23/20 14:00 12/24/20 13:42 Promethazine Hcl
[2020-12-25] MEDS: PROMETHAZINE HCL 25 MG/ML AMPUL 12.5 MG IV PUSH ×2 (01:45→07:58)
--- NOTE | 2020-12-25 01:47 | PC.NURSE ---
Pt has been sleeping. No complaints of pain or nausea. Pt has been given juices and popsicles and keeping liquids down.
[2020-12-25 05:20] VITALS: BP 124/67; PULSE 91
[2020-12-25] MEDS: AMINO ACIDS 4.25%/D5W/LYTES/CA 2,000 ML 80 ML IV CONT (05:28)
[2020-12-25 05:33] VITALS: TEMP 36.5
[2020-12-25 05:34] LABS: Alanine Aminotransferase 308 U/L (4-35); Albumin Level 3.4 g/dL (3.5-5.1); Alkaline Phosphatase 64 U/L (38-126); Anion Gap 6 mmol/L (8-16); Aspartate Amino Transferase 114 U/L (14-36); Bilirubin,Total 0.4 mg/dL (0.2-1.3); Blood Urea Nitrogen 11 mg/dL (7-17); Carbon Dioxide 24 mmol/L (22-30); Chloride 106 mmol/L (98-107); Estimated CRCL calculation 130 ml/min; Estimated Glomerular Filt Rate > 60; Glucose 93 mg/dL (65-105); Lipase 424 U/L (23-300); Potassium 4.1 mmol/L (3.4-5.0); Sodium 136 mmol/L (137-145)
--- NOTE | 2020-12-25 05:40 | PC.NURSE ---
no complaints of nausea or pain through the night. Pt keeping PO fluids down.
[2020-12-25 06:05] LABS: Thyroid Stimulating Hormone < 0.015 uIU/mL (0.465-4.680)
[2020-12-25 06:21] LABS: Free T4 Free Thyroxine 3.88 ng/mL (0.78-2.19)
[2020-12-25 09:15] VITALS: BP 123/66; PULSE 92; RESP 16; TEMP 36.7
[2020-12-25] MEDS: FOLIC ACID 1 MG/0.2 ML INJ IV PUSH (09:15)
[2020-12-25] MEDS: THIAMINE HCL 200 MG/2 ML VIAL 100 MG IV PUSH (09:15)
[2020-12-25] MEDS: PYRIDOXINE HCL 100 MG/ML VIAL (*SPC) 50 MG IV PUSH (09:15)
--- NOTE | 2020-12-25 12:48 | PM.OBPNVD ---
OB - PN: Subj Subjective Date/time seen: 12/25/20 12:48 Patient reports feels okay much less nausea almost none. Tolerated flull liquids this am and lunch pancakes today. Interval history: Patient with mild nausea this am. She denies pain. OB - PN: Obj Data Labs CBC & Chem 7: 12/23/20 04:48 12/25/20 05:05 Labs: Laboratory Results - last 24 hr 12/25/20 12/25/20 05:05 05:05 Sodium 136 L Potassium 4.1 Chloride 106 Carbon Dioxide 24 Anion Gap 6 L BUN 11 Creatinine 0.50 L Estim Creat Clear Calc 130 Estimated GFR > 60 Glucose 93 Calcium 9.0 Total Bilirubin 0.4 AST 114 H ALT 308 H Alkaline Phosphatase 64 Total Protein 6.0 L Albumin 3.4 L Lipase 424 H TSH < 0.015 L Free T4 3.88 H OB - PN A/P Assessment and Plan (1) Abnormal serum lipase level: Code(s): R74.8 - Abnormal levels of other serum enzymes Status: Acute Assessment and Plan: enzymes improving recheck labs in am. most likely transient hyperthyroidism continue to correct hyperemsis. (2) Abnormal liver enzymes: Code(s): R74.8 - Abnormal levels of other serum enzymes Status: Acute Assessment and Plan: liver enzymes continu to improve (3) Hyperemesis gravidarum: Code(s): O21.0 - Mild hyperemesis gravidarum Status: Acute Assessment and Plan: will switch to oral meds and suppository. continue IV fluids for now. Time Spent With Patient Time: Total time spent is greater than 50% in coordination of care (as documented) at patient's floor/unit and/or counseling patient: Exam GI: Other: soft and nontender
--- NOTE | 2020-12-25 13:26 | PM.IMPN ---
Progress Note: A&P Assessment and Plan (1) Abnormal serum lipase level: Code(s): R74.8 - Abnormal levels of other serum enzymes Status: Acute Assessment and Plan: Likely secondary to hyperemesis gravidarum, doubtful of acute pancreatitis. Trending down (2) Abnormal liver enzymes: Code(s): R74.8 - Abnormal levels of other serum enzymes Status: Acute Assessment and Plan: Secondary to Alk phos wnl Trending down (3) Hyperemesis gravidarum: Code(s): O21.0 - Mild hyperemesis gravidarum Status: Acute Assessment and Plan: Aggressive hydration. 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 Subjective Date/time seen: 12/25/20 13:26 Patient states that she feels much better. Review of Systems Review of Systems: Narrative: Tolerating po, no new issues overnight Exam Narrative: Exam Narrative: Lying in bed. Const: General: cooperative, healthy appearing, comfortable, no acute distress, alert, awake and Physically active Nutritional Appearance: average body habitus Orientation/consciousness: patient oriented x3 HENMT: Head: normocephalic Ears: hearing grossly normal bilaterally General nose exam: Normal external nose present Face and sinus: normal facial exam Eyes: General: appearance normal, both eyes and all related structures Pupils: Equal, round and reactive pupils present EOM: EOMs intact bilaterally Neck: Neck: no lymphadenopathy, supple and no JVD Resp: Effort & Inspection: normal respiratory effort Auscultation: clear to auscultation bilaterally Cardio: Rate: regular rate Rhythm: regular rhythm GI: GI Palp: Yes Soft to palpation and Yes No hepatosplenomegaly present Skin: General skin exam: normal color Wounds: no wounds Neuro: General: patient oriented x3 and CN's II-XI intact bilaterally Cranial nerves: Yes CN's II-XII intact bilaterally and Yes Equal, round and reactive pupils present Motor exam (neuro): 5/5 motor strength present throughout Extrem: General: no pedal edema Objective Data Vital Signs Vital Signs: Vital Signs - 24 hr 12/24/20 13:44 12/24/20 19:54 12/24/20 19:56 Temperature 98.5 F Pulse Rate 105 H 103 H 101 H Respiratory Rate 15 Blood Pressure 112/55 L 141/118 H 119/58 L 12/24/20 19:58 12/25/20 05:20 12/25/20 05:33 Temperature 98.2 F 97.7 F Pulse Rate 91 Respiratory Rate Blood Pressure 124/67 12/25/20 09:15 Temperature 98.1 F Pulse Rate 92 Respiratory Rate 16 Blood Pressure 123/66 Intake/Output Intake/Output: Intake & Output 12/22/20 12/23/20 12/24/20 12/25/20 23:59 23:59 23:59 23:59 Intake Total 2300 500 2350 3000 Output Total 200 1300 1500 1700 Balance 2100 -758 327 2230 Meds/Results Medications: Active Medications Generic Name Dose Route Start Last Admin Trade Name Freq PRN Reason Stop Dose Admin Folic Acid 1 mg 12/26/20 09:00 Folic Acid 1 Mg Tablet PO DAILY [facility] Amino Acids/Electrolytes/Dextrose 2,000 mls @ 80 mls/hr 12/23/20 14:00 12/25/20 05:28 Clinimix E 4.25%/5% Solution IV CONT 80 mls/hr .Q24H [facility] Administration Protocol Ondansetron HCl 4 mg 12/25/20 17:00 Ondansetron Hcl Odt 4 Mg Tablet PO Q6H [facility] Prochlorperazine 25 mg 12/25/20 21:00 Prochlorperazine 25 Mg Supp.Rect RECTAL Q12HR [facility] Pyridoxine HCl 50 mg 12/26/20 09:00 P[facility]idoxine Hcl [facility] Imp[facility] Ultrasound 12/23/20 06:00 IMPRESSION: Chorionic bump; see discussion above. Follow-up ultrasound imaging is recommended. Estimated gestational age of 8 weeks 5 days +/- 5 days; REENA by ultrasound is 07/30/2021 Upper Quadrant Ultrasound 12/23/20 08:08 IMPRESS
[2020-12-25] MEDS: ONDANSETRON HCL ODT 4 MG TABLET PO ×2 (16:54→22:39)
[2020-12-25] MEDS: PROCHLORPERAZINE 25 MG SUPP.RECT RECTAL (20:38)
[2020-12-25 21:03] VITALS: BP 123/57; PULSE 96
[2020-12-25 21:05] VITALS: TEMP 37.1
--- NOTE | 2020-12-25 23:01 | PC.NURSE ---
No complaints of pain or nausea at this time. Pt has been keeping down water, juices, crackers, popsicles, milk, and cereal.
[2020-12-26] VITALS (55 sets, daily range): BP systolic 118–123; BP diastolic 62–69; PULSE 25–117; RESP 16–18; TEMP 36.6–36.8; O2SAT 80–100; BMI 28.0
[2020-12-26] MEDS: AMINO ACIDS 4.25%/D5W/LYTES/CA 2,000 ML 80 ML IV CONT (02:30)
[2020-12-26] MEDS: ONDANSETRON HCL ODT 4 MG TABLET PO (05:10)
[2020-12-26 05:50] LABS: Chloride 102 mmol/L (98-107)
[2020-12-26 05:55] LABS: Alanine Aminotransferase 481 U/L (4-35); Albumin Level 3.6 g/dL (3.5-5.1); Alkaline Phosphatase 75 U/L (38-126); Anion Gap 6 mmol/L (8-16); Aspartate Amino Transferase 261 U/L (14-36); Bilirubin,Total 0.4 mg/dL (0.2-1.3); Blood Urea Nitrogen 13 mg/dL (7-17); Calcium 9.1 mg/dL (8.4-10.2); Carbon Dioxide 25 mmol/L (22-30); Estimated CRCL calculation 130 ml/min; Estimated Glomerular Filt Rate > 60; Glucose 94 mg/dL (65-105); Lipase 670 U/L (23-300); Potassium 4.1 mmol/L (3.4-5.0); Sodium 133 mmol/L (137-145)
[2020-12-26 06:03] LABS: Hematocrit 37.2 % (37.0-47.0); Hemoglobin 12.3 g/dL (12.0-15.0); Mean Corpuscular HGB Conc 33.1 g/dl (32-36); Mean Corpuscular Hemoglobin 29.6 pg (26-34); Mean Corpuscular Volume 89.6 fl (80-100); Mean Platelet Volume 10.4 fl (7.4-10.4); Platelet Count Result 210 k/mm3 (150-375); Red Blood Count 4.15 M/mm3 (4.2-5.4); Red Cell Distribution Width 10.9 % (11.5-14.5); White Blood Count 10.2 K/mm3 (4.5-10.0)
[2020-12-26 06:23] LABS: Thyroid Stimulating Hormone < 0.015 uIU/mL (0.465-4.680)
[2020-12-26] MEDS: LACTATED RINGERS 1,000 ML 45 ML IV CONT (07:50)
--- NOTE | 2020-12-26 07:56 | PC.NURSE ---
[id number] Counts RN at bedside to place PICC line per 's order.
[2020-12-26] MEDS: LIDOCAINE HCL 1% PF INJ 5 ML VIAL INFILTRATE (08:30)
[2020-12-26] MEDS: FOLIC ACID 1 MG/0.2 ML INJ IV PUSH (09:21)
[2020-12-26] MEDS: THIAMINE HCL 200 MG/2 ML VIAL 100 MG IV PUSH (09:23)
[2020-12-26] MEDS: PYRIDOXINE HCL 100 MG/ML VIAL (*SPC) 50 MG IV PUSH (09:25)
[2020-12-26] MEDS: PROMETHAZINE HCL 25 MG/ML AMPUL 12.5 MG IV PUSH ×3 (09:27→21:29)
[2020-12-26 10:08] LABS: Free T4 Free Thyroxine 3.65 ng/mL (0.78-2.19)
--- NOTE | 2020-12-26 14:34 | PM.IMPN ---
Progress Note: A&P Assessment and Plan (1) Abnormal serum lipase level: Code(s): R74.8 - Abnormal levels of other serum enzymes Status: Acute Assessment and Plan: Persistent elevation of serum lipase Abdominal US non remarkable Clinically asymptomatic No findings on physical exam. Clear liquids for now (2) Abnormal liver enzymes: Code(s): R74.8 - Abnormal levels of other serum enzymes Status: Acute Assessment and Plan: Persistent elevation of liver enzymes Hepatitis panel reviewed so far is negative Abdominal US reviewed no remarkable findings Hold off on MRI/CT until second or third trimester No prior history of liver disease with first Normal liver enzymes prior to this hospitalization Acute fatty liver of vs intrahepatic cholestasis of GI consult No hx of ETOH abuse Patient with hyperemesis gravidarum Hydration Continue to trend (3) Hyperemesis gravidarum: Code(s): O21.0 - Mild hyperemesis gravidarum Status: Acute Assessment and Plan: Supportive care improved Hydration (4) 2, currently : Code(s): Z34.90 - Encounter for supervision of normal , unspecified, unspecified trimester Status: Acute Assessment and Plan: Viable as per US Follow up in the outpatient setting Subjective Date/time seen: 12/26/20 14:34 Patient states that she feels well, no new issues overnight. Review of Systems Review of Systems: Narrative: Denies any discomfort currently Constitutional: Comments: no fevers, no rigors, no chills. ENT: Comments: no throat pain, no ear ache. Cardiovascular: Comments: no chest pain, no orthopnea, no leg swelling. Respiratory: Comments: no cough, no sob, no sputum production. Gastrointestinal: Comments: mild nausea, no vomiting, no diarrhea. Musculoskeletal: Comments: no joint enlargement Integumentary/Breasts: Comments: no rashes Neurologic: Comments: no sensory motor deficit Exam Narrative: Exam Narrative: Lying in bed Const: General: healthy appearing, comfortable, no acute distress, alert, awake and Physically active Nutritional Appearance: average body habitus HENMT: Head: normal to inspection and normocephalic Ears: hearing grossly normal bilaterally General nose exam: Normal external nose present Face and sinus: normal facial exam Mouth: Yes Normal oral and palatal mucosa present Eyes: General: appearance normal, both eyes and all related structures Pupils: Equal, round and reactive pupils present EOM: EOMs intact bilaterally Neck: Neck: normal visual inspection, no lymphadenopathy, supple and no JVD Lymphatic: no lymphadenopathy noted Resp: Effort & Inspection: able to speak in complete sentences Auscultation: clear to auscultation bilaterally Cardio: Jugular venous distension: no JVD Rate: regular rate Rhythm: regular rhythm Peripheral pulses: Peripheral pulses 2+ throughout GI: Inspection: normal to inspection GI Palp: Yes Soft to palpation and Yes No hepatosplenomegaly present Skin: Rashes: no rashes Neuro: General: patient oriented x3 and CN's II-XI intact bilaterally Cranial nerves: Yes CN's II-XII intact bilaterally Cognition (Neuro): normal cognition Motor exam (neuro): 5/5 motor strength present throughout Sensory Exam: normal sensation Extrem: General: no joint enlargement and no pedal edema Objective Data Vital Signs Vital Signs: Vital Signs - 24 hr 12/25/20 21:03 12/25/20 21:05 12/26/20 05:25 Temperature 98.7 F Pulse Rate 96 86 Respiratory Rate Blood Pressure 123/57 L 118/62 Pulse Oximetry 12/26/20 07:49 12/26/20 10:10 12/26/20 10:15 Temperature 98.2 F Pulse Rate 90 Respiratory Rate 16 Blood Pressure 123/69 Pulse Oximetry 100 100 12/26/20 10:20 12/26/20 10:25 12/26/20 10:30 Temperature Pulse Rate Respiratory Rate Blood Pressure Pulse Oximetry 100 100 100 12/26/20
--- NOTE | 2020-12-26 16:55 | PM.OBPNVD ---
OB - PN: Subj Subjective Date/time seen: 12/26/20 16:55 Interval history: Patient did well with drinking and eating. No vomiting. Mild nausea. No pain. OB - PN: Obj Data Labs CBC & Chem 7: 12/26/20 05:11 12/26/20 05:11 Labs: Laboratory Results - last 24 hr 12/26/20 12/26/20 12/26/20 05:11 05:11 05:11 WBC 10.2 H RBC 4.15 L Hgb 12.3 Hct 37.2 MCV 89.6 MCH 29.6 MCHC 33.1 RDW 10.9 L Plt Count 210 MPV 10.4 Sodium 133 L Potassium 4.1 Chloride 102 Carbon Dioxide 25 Anion Gap 6 L BUN 13 Creatinine 0.50 L Estim Creat Clear Calc 130 Estimated GFR > 60 Glucose 94 Calcium 9.1 Total Bilirubin 0.4 AST 261 H ALT 481 H Alkaline Phosphatase 75 Total Protein 7.0 Albumin 3.6 Lipase 670 H TSH < 0.015 L Free T4 3.65 H OB - PN A/P Assessment and Plan (1) Hyperemesis gravidarum: Code(s): O21.0 - Mild hyperemesis gravidarum Status: Acute Assessment and Plan: Doing much better. Tolerated bland diet and drinking. Nausea minimal. (2) Abnormal serum lipase level: Code(s): R74.8 - Abnormal levels of other serum enzymes Status: Acute Assessment and Plan: increased over admit levels unsure etiology could be drug induced from zofran clear liquids and consult GI per hospitalist rec (3) Abnormal liver enzymes: Code(s): R74.8 - Abnormal levels of other serum enzymes Status: Acute Assessment and Plan: increased over admit levels unsure etiology could be drug induced from zofran will consult GI per hospitalist recommendation Time Spent With Patient Time: Total time spent is greater than 50% in coordination of care (as documented) at patient's floor/unit and/or counseling patient: Exam GI: Inspection: normal to inspection GI Palp: No abdominal tenderness
[2020-12-26 18:57] LABS: Hepatitis B Core Ab Total Nonreactive (Nonreactive)
[2020-12-26] MEDS: AMINO ACIDS 4.25%/D5W/LYTES/CA 2,000 ML 125 ML IV CONT (20:37)
[2020-12-26] MEDS: CENTRAL LINE FLUSH 10 ML IV PUSH ×3 (20:38→21:30)
[2020-12-27] MEDS: PROMETHAZINE HCL 25 MG/ML AMPUL 12.5 MG IV PUSH ×4 (03:19→21:23)
[2020-12-27] MEDS: CENTRAL LINE FLUSH 10 ML IV PUSH ×2 (03:20→22:11)
[2020-12-27] MEDS: CENTRAL LINE FLUSH 20 ML IV PUSH (03:50)
[2020-12-27 04:06] VITALS: BP 126/62; PULSE 91; RESP 18; TEMP 36.5
[2020-12-27 04:08] LABS: Basophils Percent Auto 0.2 % (0.2-1.2); Eosinophils Absolute Auto 0.1 K/mm3 (0-0.3); Eosinophils Percent Auto 1.1 % (0-4.4); Hematocrit 34.5 % (37.0-47.0); Hemoglobin 11.6 g/dL (12.0-15.0); Immature Granulocyte Absolute 0.05 K/mm3 (0.00-0.031); Immature Granulocyte Percent A 0.5 % (0-0.5); Lymphocytes Absolute Auto 1.85 K/mm3 (0.9-3.2); Lymphocytes Percent Auto 17.8 % (18.3-44.2); Mean Corpuscular HGB Conc 33.6 g/dl (32-36); Mean Corpuscular Hemoglobin 29.7 pg (26-34); Mean Corpuscular Volume 88.5 fl (80-100); Mean Platelet Volume 10.2 fl (7.4-10.4); Monocytes Absolute Auto 1.1 K/mm3 (0.1-0.6); Monocytes Percent Auto 10.3 % (2.6-8.5); Neutrophils Absolute Auto 7.3 K/mm3 (1.3-6.7); Neutrophils Percent Auto 70.1 % (45.5-73.1); Platelet Count Result 200 k/mm3 (150-375); Red Cell Distribution Width 11.1 % (11.5-14.5); White Blood Count 10.4 K/mm3 (4.5-10.0)
[2020-12-27 04:22] LABS: Alanine Aminotransferase 388 U/L (4-35); Albumin Level 3.4 g/dL (3.5-5.1); Alkaline Phosphatase 66 U/L (38-126); Amylase 110 U/L (30-110); Anion Gap 3 mmol/L (8-16); Aspartate Amino Transferase 137 U/L (14-36); Bilirubin,Total 0.4 mg/dL (0.2-1.3); Blood Urea Nitrogen 13 mg/dL (7-17); Calcium 9.1 mg/dL (8.4-10.2); Carbon Dioxide 27 mmol/L (22-30); Chloride 104 mmol/L (98-107); Estimated CRCL calculation 180 ml/min; Estimated Glomerular Filt Rate > 60; Glucose 99 mg/dL (65-105); Lipase 383 U/L (23-300); Potassium 4.1 mmol/L (3.4-5.0); Sodium 134 mmol/L (137-145)
[2020-12-27 07:36] VITALS: BP 129/70; PULSE 101; RESP 20; TEMP 36.4
[2020-12-27] MEDS: FOLIC ACID 1 MG/0.2 ML INJ IV PUSH (09:05)
[2020-12-27] MEDS: THIAMINE HCL 200 MG/2 ML VIAL 100 MG IV PUSH (09:06)
[2020-12-27] MEDS: PYRIDOXINE HCL 100 MG/ML VIAL (*SPC) 50 MG IV PUSH (09:07)
[2020-12-27] MEDS: SODIUM CHLORIDE 0.9% INJ 10 ML 15 ML (09:08)
--- NOTE | 2020-12-27 11:59 | PM.OBPNVD ---
OB - PN: Subj Subjective Date/time seen: 12/27/20 11:59 Interval history: Patient feels hungry desires to eat no nausea this am. No pain. OB - PN: Obj Data Labs CBC & Chem 7: 12/27/20 03:58 12/27/20 03:58 Labs: Laboratory Results - last 24 hr 12/23/20 12/27/20 12/27/20 04:48 03:58 03:58 WBC 10.4 H RBC 3.90 L Hgb 11.6 L Hct 34.5 L MCV 88.5 MCH 29.7 MCHC 33.6 RDW 11.1 L Plt Count 200 MPV 10.2 Immature Gran % (Auto) 0.5 Neut % (Auto) 70.1 Lymph % (Auto) 17.8 L [place] % (Auto) 10.3 H Eos % (Auto) 1.1 Baso % (Auto) 0.2 Lymph # (Auto) 1.85 [place] # (Auto) 1.1 H Eos # (Auto) 0.1 Baso # (Auto) 0.0 Abs Immat Gran (auto) 0.05 H Absolute Neuts (auto) 7.3 H Absolute Nucleated RBC 0.0 Nucleated RBC % 0.0 Sodium Potassium Chloride Carbon Dioxide Anion Gap BUN Creatinine Estim Creat Clear Calc Estimated GFR Glucose Calcium Total Bilirubin AST ALT Alkaline Phosphatase Total Protein Albumin Amylase 110 Lipase Hep B Core Total Ab Nonreactive 12/27/20 03:58 WBC RBC Hgb Hct MCV MCH MCHC RDW Plt Count MPV Immature Gran % (Auto) Neut % (Auto) Lymph % (Auto) [place] % (Auto) Eos % (Auto) Baso % (Auto) Lymph # (Auto) [place] # (Auto) Eos # (Auto) Baso # (Auto) Abs Immat Gran (auto) Absolute Neuts (auto) Absolute Nucleated RBC Nucleated RBC % Sodium 134 L Potassium 4.1 Chloride 104 Carbon Dioxide 27 Anion Gap 3 L BUN 13 Creatinine 0.40 L Estim Creat Clear Calc 180 Estimated GFR > 60 Glucose 99 Calcium 9.1 Total Bilirubin 0.4 AST 137 H ALT 388 H Alkaline Phosphatase 66 Total Protein 7.0 Albumin 3.4 L Amylase Lipase 383 H Hep B Core Total Ab OB - PN A/P Assessment and Plan (1) Abnormal serum lipase level: Code(s): R74.8 - Abnormal levels of other serum enzymes Status: Acute (2) Abnormal liver enzymes: Code(s): R74.8 - Abnormal levels of other serum enzymes Status: Acute Assessment and Plan: Labs improved with discontinuation of zofran and bowel rest. will increase diet. continue to hold zofran. suspension for drug induced hepatis with zofran. (3) Hyperemesis gravidarum: Code(s): O21.0 - Mild hyperemesis gravidarum Status: Acute Time Spent With Patient Time: Total time spent is greater than 50% in coordination of care (as documented) at patient's floor/unit and/or counseling patient: Exam : Other: soft nontender.
[2020-12-27] MEDS: AMINO ACIDS 4.25%/D5W/LYTES/CA 2,000 ML 125 ML IV CONT (12:04)
--- NOTE | 2020-12-27 14:33 | PCDIET ---
Nutrition Follow-Up Complete: Nutrition Diagnosis: Inadequate oral intake related to hyperemesis as evidenced by nausea/vomiting and reported weight loss. Nutrition Goal: Patient to meet estimated nutritional needs and stabilize weight. Goal met. Patient receiving Clinimix E 4.25/5 at 125mL/hr which provides 1020kcal and 128g protein daily. If duration of parenteral nutrition is anticipated to last more than a few more days, would consider transition to central PN: Clinimix E 5/15 at 90mL/hr with 250mL 20% lipids daily for 2034kcal and 108g protein. Diet has just advanced to regular. Will follow for tolerance/intakes. Patient may best tolerate lower fat food items and small, frequent meals. Last recorded weight is 76.5kg which is increased from last review. +I/O. Bowel Motility: No documented BM. Labs Reviewed: WBC (10.4), Hgb (11.6), Hct (34.5), AST (137), ALT (388), Alb (3.4), Lipase (383), Na (134) Meds Noted: Folic Acid, Phenergan, Vitamin B6, Thiamine Additional Notes: No skin breakdown documented. Will continue to monitor with same goal. Nutrition Monitoring and Evaluation: Follow up every Wednesday/Wednesday.
--- NOTE | 2020-12-27 14:35 | WPDGICN ---
Assessment and Plan Assessment and plan (1) Hyperemesis gravidarum: Code(s): O21.0 - Mild hyperemesis gravidarum Status: Acute Assessment and Plan: clinical course and laboratory data probably consistent with hyperemesis, she denies abdominal pain and now she is feeling better after hydration and antiemetics advance diet as tolerated. Now she is tolerating and feeling better reglan before meals and phenergan as needed thiamine, pyridoxine and folic (2) Abnormal liver enzymes: Code(s): R74.8 - Abnormal levels of other serum enzymes Status: Acute Assessment and Plan: probably from dehydration, zofran has been discontinued, also noted elevated lipase but normal bili and AP, also GB ultrasound. Less likely pancreatitis (patients with hyperemesis gravidarum can also have elevated lipase) if worsening symptoms then can always order MRCP to assess pancreatobiliary system if Ob-fur repair inspector is ok (3) Abnormal serum lipase level: Code(s): R74.8 - Abnormal levels of other serum enzymes Status: Acute (4) 2, currently : Code(s): Z34.90 - Encounter for supervision of normal , unspecified, unspecified trimester Status: Acute GI Consult Note Consult date/time: 12/27/20 14:35 Reason for consult: nausea and vomiting HPI: Klaus Valdivia is a 25 year old female with 9 weeks , /Ab0. She is was admitted here with 4 weeks of progressive nausea and vomiting but much worse last 2 weeks, unable to keep much of anything despite using zofran and Reglan. She had minimal epigastric pain but only with retching otherwise no discomfort. She was given medical therapy, hydration and now finally started eating again, no pain. Blood work showed elevated liver enzymes 100-300, normal bili and AP, elevated lipase 600. No abdominal pain otherwise. Hepatitis panel negative, ultrasound showed gallbladder with layering proteinaceous fluid, no stones or cholecystitis. Review of Systems Constitutional: Constitutional: Denies chills and Reports lethargy Eyes: Eyes: Reports no additional eye complaints ENT: Reports system reviewed and no additional complaints, except as documented Cardiovascular: Cardiovascular: Reports no additional cardiovascular complaints Respiratory: Respiratory: Reports no additional respiratory complaints Gastrointestinal: Gastrointestinal: Reports nausea and Reports vomiting Genitourinary: Genitourinary: Denies hematuria Musculoskeletal: Musculoskeletal: Denies neck pain Integumentary/Breasts: Skin/Breast: Denies dry skin Neurologic: Denies confusion Psychiatric: Psychiatric: Denies behavioral changes [facility] Past Medical History Medical History (Updated 12/23/20 @ 08:48 by Shilpi Mcginnis MD) (normal spontaneous vaginal delivery) Surgical History Surgical History (Updated 12/22/20 @ 18:16 by Paul Sams MD) H/O removal of cyst LEFT UPPER EYELID Family History Family History (Updated 12/22/20 @ 18:18 by Paul Sams MD) Father Well adult Mother Well adult Sibling Well adult Sibling Well adult Social History Social History (Updated 12/22/20 @ 18:19 by Paul Sams MD) Social History: Single. 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 Alcohol intake: never Substance use: never Gender identity (if verbalized by the patient): Female Spiritual care concerns: No Meds Home Medications and Allergies Home Medications Medication Instructions Recorded Confirmed Type metoclopramide HCl 5 mg PO TID PRN 12/23/20 12/23/20 History Allergies Allergy/AdvReac Type Severity Reaction Status Date / Time No Known Allergies Allergy Unverified 10/05/16 08:18 Vital Signs Vital Signs - 24 hr 12/26/20 14:37 12/26/20 14:42 12/26/20 14:47 Temperature Pulse Rate Respiratory Rate Blood Pressure Pulse Oximetry 100 100 100
--- NOTE | 2020-12-27 15:08 | PM.IMPN ---
Progress Note: A&P Assessment and Plan (1) Abnormal serum lipase level: Code(s): R74.8 - Abnormal levels of other serum enzymes Status: Acute Assessment and Plan: Clinically well appearing Tolerating po Appreciate GI note Advance diet as tolerated Follow up in the outpatient setting (2) Abnormal liver enzymes: Code(s): R74.8 - Abnormal levels of other serum enzymes Status: Acute Assessment and Plan: Continue to monitor Plateauing Bilirubin is normal (3) Hyperemesis gravidarum: Code(s): O21.0 - Mild hyperemesis gravidarum Status: Acute Assessment and Plan: Supportive care MVI (4) 2, currently : Code(s): Z34.90 - Encounter for supervision of normal , unspecified, unspecified trimester Status: Acute Assessment and Plan: Follow up in the outpatient setting. Subjective Date/time seen: 12/27/20 15:08 Patient states that she feels well denies any discomfort currently. Review of Systems Review of Systems: Narrative: Denies any issues currently, had a good night rest. Constitutional: Comments: no fevers, no rigors, no chills Eyes: Comments: no vision changes. ENT: Comments: no nasal congestion, no throat pain. Cardiovascular: Comments: no chest pain, no pnd, no orthopnea, no leg swelling. Respiratory: Comments: no cough, no sob, no sputum production. Gastrointestinal: Comments: mild nausea. Musculoskeletal: Comments: no muscle aches, no joint enlargement Integumentary/Breasts: Comments: no rashes Neurologic: Comments: no sensory motor deficit Exam Narrative: Exam Narrative: Sitting in bed. Const: General: cooperative, healthy appearing, comfortable, no acute distress, alert, awake and Physically active Nutritional Appearance: average body habitus and well nourished Orientation/consciousness: patient oriented x3 HENMT: Head: normal to inspection and normocephalic Ears: hearing grossly normal bilaterally General nose exam: Normal external nose present Face and sinus: normal facial exam Eyes: General: appearance normal, both eyes and all related structures Pupils: Equal, round and reactive pupils present EOM: EOMs intact bilaterally Neck: Neck: no lymphadenopathy, supple and no JVD Resp: Effort & Inspection: able to speak in complete sentences Auscultation: clear to auscultation bilaterally Cardio: Jugular venous distension: no JVD Rate: regular rate Rhythm: regular rhythm GI: GI Palp: Yes Soft to palpation and Yes No hepatosplenomegaly present Skin: Wounds: no wounds Neuro: General: patient oriented x3 and CN's II-XI intact bilaterally Cranial nerves: Yes CN's II-XII intact bilaterally and Yes Equal, round and reactive pupils present Cognition (Neuro): normal cognition Speech: normal speech Gait exam (Neuro): Normal gait present Motor exam (neuro): 5/5 motor strength present throughout Extrem: General: no pedal edema Objective Data Vital Signs Vital Signs: Vital Signs - 24 hr 12/26/20 15:12 12/26/20 15:33 12/26/20 18:40 Temperature 98 F Pulse Rate 98 Respiratory Rate 18 Blood Pressure 120/66 Pulse Oximetry 100 100 12/27/20 04:06 12/27/20 07:36 Temperature 97.7 F 97.6 F Pulse Rate 91 101 H Respiratory Rate 18 20 Blood Pressure 126/62 129/70 Pulse Oximetry Intake/Output Intake/Output: Intake & Output 12/24/20 12/25/20 12/26/20 12/27/20 23:59 23:59 23:59 23:59 Intake Total 2350 4120 4450 2000 Output Total 1500 3400 1900 Balance 649 901 6300 1999 Meds/Results Medications: Active Medications Generic Name Dose Route Start Last Admin Trade Name Johnnyq PRN Reason Stop Dose Admin Folic Acid 1 mg 12/26/20 09:00 12/27/20 09:05 Folic Acid 1 Mg/0.2 Ml Inj IV PUSH 1 mg QAM BEKAH Administration Amino Acids/Electrolytes/Dextrose 2,000 mls @ 125 mls/hr 12/26/20 20:05 12/27/20 12:04 Clinimix E 4.25%/5% Solution IV CONT 125 mls/hr .Q1
[2020-12-28] MEDS: PROMETHAZINE HCL 25 MG/ML AMPUL 12.5 MG IV PUSH ×2 (03:23→09:20)
[2020-12-28] MEDS: CENTRAL LINE FLUSH 10 ML IV PUSH ×3 (03:24→09:39)
[2020-12-28] MEDS: CENTRAL LINE FLUSH 20 ML IV PUSH (03:58)
[2020-12-28] MEDS: AMINO ACIDS 4.25%/D5W/LYTES/CA 2,000 ML 125 ML IV CONT (03:59)
[2020-12-28 04:15] LABS: Basophils Percent Auto 0.3 % (0.2-1.2); Eosinophils Absolute Auto 0.1 K/mm3 (0-0.3); Eosinophils Percent Auto 0.8 % (0-4.4); Hematocrit 33.6 % (37.0-47.0); Hemoglobin 11.3 g/dL (12.0-15.0); Immature Granulocyte Absolute 0.04 K/mm3 (0.00-0.031); Immature Granulocyte Percent A 0.3 % (0-0.5); Lymphocytes Percent Auto 17.2 % (18.3-44.2); Mean Corpuscular HGB Conc 33.6 g/dl (32-36); Mean Corpuscular Hemoglobin 29.6 pg (26-34); Mean Platelet Volume 10.1 fl (7.4-10.4); Monocytes Absolute Auto 1.2 K/mm3 (0.1-0.6); Neutrophils Absolute Auto 8.3 K/mm3 (1.3-6.7); Neutrophils Percent Auto 71.4 % (45.5-73.1); Platelet Count Result 188 k/mm3 (150-375); Red Blood Count 3.82 M/mm3 (4.2-5.4); White Blood Count 11.6 K/mm3 (4.5-10.0)
[2020-12-28 04:29] LABS: Alanine Aminotransferase 441 U/L (4-35); Albumin Level 3.5 g/dL (3.5-5.1); Alkaline Phosphatase 68 U/L (38-126); Anion Gap 4 mmol/L (8-16); Aspartate Amino Transferase 207 U/L (14-36); Bilirubin,Total 0.3 mg/dL (0.2-1.3); Blood Urea Nitrogen 14 mg/dL (7-17); Calcium 9.5 mg/dL (8.4-10.2); Carbon Dioxide 27 mmol/L (22-30); Chloride 103 mmol/L (98-107); Estimated CRCL calculation 180 ml/min; Estimated Glomerular Filt Rate > 60; Glucose 100 mg/dL (65-105); Sodium 134 mmol/L (137-145)
[2020-12-28] MEDS: PYRIDOXINE HCL 100 MG/ML VIAL (*SPC) 50 MG IV PUSH (09:19)
[2020-12-28] MEDS: THIAMINE HCL 200 MG/2 ML VIAL 100 MG IV PUSH (09:21)
[2020-12-28 09:44] VITALS: BP 124/66; PULSE 105
[2020-12-28 09:45] VITALS: BP 121/64; BP 124/66; PULSE 104; RESP 16; TEMP 36.6
[2020-12-28 10:00] VITALS: BP 121/61; PULSE 108
--- NOTE | 2020-12-28 10:05 | PC.NURSE ---
0955--Hospitalist at bedside. Assessment done and plan of care discussed. Hospitalist will confer with Dr. Cox and update us with DC plan.
--- NOTE | 2020-12-28 10:37 | PC.NURSE ---
1035--Hospitalist at bedside to discuss discharge instructions; requests pt to be able to eat and keep food down before DC to home.
--- NOTE | 2020-12-28 11:20 | PM.DS ---
DS: Admitting Diagnosis Admitting Diagnosis Admitting Diagnosis: 1) Hyperemesis gravidarum: (2) 2, currently : (3) Abnormal liver enzymes: (4) Abnormal serum lipase level: DS: Discharge Diagnosis Discharge Diagnosis (1) 2, currently : Code(s): Z34.90 - Encounter for supervision of normal , unspecified, unspecified trimester Status: Acute Assessment and Plan: Follow up in the outpatient setting Continue care (2) Hyperemesis gravidarum: Code(s): O21.0 - Mild hyperemesis gravidarum Status: Acute Assessment and Plan: Improved (3) Abnormal liver enzymes: Code(s): R74.8 - Abnormal levels of other serum enzymes Status: Acute Assessment and Plan: Will repeat CMP in the outpatient setting and follow up with GI. (4) Abnormal serum lipase level: Code(s): R74.8 - Abnormal levels of other serum enzymes Status: Acute Assessment and Plan: Improved no evidence of pancreatitis. DS: Summary Hospital Course Hospital Course: Klaus Valdivia is a 25 year old female who is currently 8 weeks and is /Ab0. About 2 weeks ago she began having nausea with emesis. She tried Zofran and then Reglan without success. She has yet to see her primary OB for appointment. However she has been taking vitamins. Over the last several days she has been sipping cold water and has been unable to keep anything else down. She has lost several lb in the last 8 weeks. With her vomiting she has experienced some tingling in the perioral region and in her feet. She has no dizziness. She has no fevers or chills. No headache. No sinus or ear congestion. No cough. No shortness of breath. No chest pain. She has epigastric pain only with retching. No abdominal pain otherwise. Over the last 2 days she has had a couple of loose stools per day. She denied dysuria hematuria or back pain. She admitted to the applications systems engineer section was placed on NPO and received MVT infusion and fluid resuscitation for several days slowly was started back on a clear liquid diet and was advanced as tolerated overall did well was treated symptomatically. Liver enzymes and Lipase were monitored on a daily basis there was no worsening and maintained fairly at a plateau. She was monitor and follow on a daily basis by hospitalist service as well. It was felt that it was ok to wait once patient made it to 2nd or rd trimester to pursue any further imaging studies. A GI consult was obtained. No procedures were done during this admission. Once patient was able to tolerate po she was discharged with follow up in the outpatient setting with GI. Time Spent with Patient Time attestation: Total time spent providing and/or coordinating discharge services: Exam Const: General: cooperative, comfortable, no acute distress, well developed, alert and awake Nutritional Appearance: average body habitus Orientation/consciousness: patient oriented x3 Limitations: no limitations HENMT: Head: normal to inspection, normocephalic and atraumatic Ears: hearing grossly normal bilaterally General nose exam: Normal external nose present Face and sinus: normal facial exam Eyes: General: appearance normal, both eyes and all related structures Pupils: Equal, round and reactive pupils present EOM: EOMs intact bilaterally Neck: Neck: no lymphadenopathy and no JVD Resp: Effort & Inspection: normal respiratory effort Auscultation: clear to auscultation bilaterally Cardio: Jugular venous distension: no JVD Rate: regular rate Rhythm: regular rhythm GI: GI Palp: Yes Soft to palpation and Yes No hepatosplenomegaly present Skin: Rashes: no rashes Neuro: General: patient oriented x3 and CN's II-XI intact bilaterally Cranial nerves: Yes CN's II-XII intact bilaterally and Yes Equal, round and reactive pupils present Cognition (Neuro): normal
--- NOTE | 2020-12-28 12:36 | PC.NURSE ---
1232--Discussed obtaining a primary care physician with Care Coordination. Will forward the information to patient.
--- NOTE | 2020-12-28 13:01 | PC.NURSE ---
1250--Charge nurse from ICU at bedside to remove PICC line. No complications noted.
--- NOTE | 2020-12-29 00:30 | PM.OBPNVD ---
OB - PN: Subj Subjective Date/time seen: 12/29/20 00:30 Interval history: Patient feels hungry desires to eat no vomitting this last night. No pain. OB - PN: Obj Data Labs CBC & Chem 7: 12/28/20 04:05 12/28/20 04:05 Labs: Laboratory Results - last 24 hr 12/28/20 12/28/20 04:05 04:05 WBC 11.6 H RBC 3.82 L Hgb 11.3 L Hct 33.6 L MCV 88.0 MCH 29.6 MCHC 33.6 RDW 11.0 L Plt Count 188 MPV 10.1 Immature Gran % (Auto) 0.3 Neut % (Auto) 71.4 Lymph % (Auto) 17.2 L [place] % (Auto) 10.0 H Eos % (Auto) 0.8 Baso % (Auto) 0.3 Lymph # (Auto) 2.00 [place] # (Auto) 1.2 H Eos # (Auto) 0.1 Baso # (Auto) 0.0 Abs Immat Gran (auto) 0.04 H Absolute Neuts (auto) 8.3 H Absolute Nucleated RBC 0.0 Nucleated RBC % 0.0 Sodium 134 L Potassium 4.0 Chloride 103 Carbon Dioxide 27 Anion Gap 4 L BUN 14 Creatinine 0.40 L Estim Creat Clear Calc 180 Estimated GFR > 60 Glucose 100 Calcium 9.5 Total Bilirubin 0.3 AST 207 H ALT 441 H Alkaline Phosphatase 68 Total Protein 7.0 Albumin 3.5 OB - PN A/P Assessment and Plan (1) Abnormal serum lipase level: Code(s): R74.8 - Abnormal levels of other serum enzymes Status: Acute Assessment and Plan: Labs elevated. plan MRCP with GI. (2) Abnormal liver enzymes: Code(s): R74.8 - Abnormal levels of other serum enzymes Status: Acute (3) Hyperemesis gravidarum: Code(s): O21.0 - Mild hyperemesis gravidarum Status: Acute (4) 2, currently : Code(s): Z34.90 - Encounter for supervision of normal , unspecified, unspecified trimester Status: Acute Time Spent With Patient Time: Total time spent is greater than 50% in coordination of care (as documented) at patient's floor/unit and/or counseling patient:
== END 2020-12-28 13:24 | disposition home or self-care (01) | DRG 833 ==
LOC: ANHED 17:57 → ANHOBPP 18:20
PROVIDERS: Family Medicine; Obstetrics & Gynecology; Obstetrics & Gynecology Gynecology; Physician Assistant; Admitting Provider Internal Medicine; Emergency Provider General Practice; PCP Internal Medicine; Visit Provider Internal Medicine
DX: O21.0 Mild hyperemesis gravidarum (principal); R74.8 Abnormal levels of other serum enzymes; Z3A.08 8 weeks gestation of pregnancy
CPT/HCPCS: 36415; 36569; 76705; 76801; 76817; 80048; 80053; 80076; 81001; 82150; 82728; 83690; 83735; 84100; 84439; 84443; 85025; 85027; 86704; 86709; 86803; 87340; 96360; 99285; A9270; C1751; J2550; J3411; J3415; J3475; J3480; J7030; J7042; J7120

== ENCOUNTER 2021-01-14 11:45 | Outpatient (CLI) | payer OTHER, SELFPAY ==
[2021-01-14 12:46] LABS: Alanine Aminotransferase 115 U/L (4-35); Albumin Level 3.7 g/dL (3.5-5.1); Alkaline Phosphatase 63 U/L (38-126); Anion Gap 10 mmol/L (8-16); Aspartate Amino Transferase 58 U/L (14-36); Bilirubin,Total 0.3 mg/dL (0.2-1.3); Blood Urea Nitrogen 8 mg/dL (7-17); Calcium 9.1 mg/dL (8.4-10.2); Carbon Dioxide 19 mmol/L (22-30); Chloride 105 mmol/L (98-107); Estimated Glomerular Filt Rate > 60; Glucose 101 mg/dL (65-105); Lipase 228 U/L (23-300); Potassium 3.8 mmol/L (3.4-5.0); Sodium 134 mmol/L (137-145)
== END 2021-01-14 11:46 | disposition home or self-care (01) ==
PROVIDERS: Visit Provider Internal Medicine
DX: R74.8 Abnormal levels of other serum enzymes (principal)
CPT/HCPCS: 36415; 80053; 83690

== ENCOUNTER → 2021-01-20 10:42 | Outpatient (CLI) | payer OTHER, SELFPAY ==
--- NOTE | ~2021-01-20 | US_ITS ---
EXAMINATION: US OB limited DATE: 01/20/2021 11:05 INDICATION: Subchorionic hematoma at the end of the first trimester TECHNIQUE: Real-time pelvic ultrasound utilizing both a transvaginal and transabdominal probe was pe rformed. The interpreting radiologist was not present for the study. COMPARISON: 12/23/2020 FINDINGS: The uterus measures 15.7 x 7.5 x 10.4 cm. There is an intrauterine gestational sac.There is a single intrauterine fetus with heart rate measuring 145 beats per minute (bpm) by M-mode Doppler. Sli ght decrease in size of a 1.3 x 1.4 x 0.8 cm lenticular hypoechoic region bulging into the amniotic c avity from the choriodecidual surface of the gestational sac which appears slightly decreased in size since the prior study at which time it measured 1.5 x 1.3 x 1.0 cm. The ovaries are not visualized. There is no free fluid in the pelvis. IMPRESSION: 1. Single living fetus with heart rate of 145 bpm. 2. Slight decrease in size of a now 1.3 x 1.4 x 0.8 cm lenticular lesion bulging into the amniotic ca vity of the gestational sac. This could represent either a decreasing small hematoma or a second invo luting anembryonic failed . Reviewed, dictated and finalized at location B. UREMENT ANALYST IMPRESSION: 1. Single living fetus with heart rate of 145 bpm. 2. Slight decrease in size of a now 1.3 x 1.4 x 0.8 cm lenticular lesion bulgin g into the amniotic cavity of the gestational sac. This could represent either a decreasing small hematoma or a second involuting anembryonic failed .
== END ==
PROVIDERS: Visit Provider Obstetrics & Gynecology
DX: O36.8910 Maternal care for other specified fetal problems, first trimester, not applicable or unspecified (principal); Z3A.00 Weeks of gestation of pregnancy not specified
CPT/HCPCS: 76815

== ENCOUNTER 2021-01-30 20:17 | Emergency (ER) | payer OTHER, SELFPAY ==
[2021-01-30 20:20] VITALS: BP 149/90; PULSE 108; RESP 18; TEMP 36.4; O2SAT 100
[2021-01-30 20:44] LABS: Basophils Percent Auto 0.2 % (0.2-1.2); Eosinophils Percent Auto 0.2 % (0-4.4); Hematocrit 35.5 % (37.0-47.0); Immature Granulocyte Absolute 0.06 K/mm3 (0.00-0.031); Immature Granulocyte Percent A 0.5 % (0-0.5); Lymphocytes Absolute Auto 2.03 K/mm3 (0.9-3.2); Lymphocytes Percent Auto 15.8 % (18.3-44.2); Mean Corpuscular HGB Conc 33.8 g/dl (32-36); Mean Corpuscular Hemoglobin 29.3 pg (26-34); Mean Corpuscular Volume 86.6 fl (80-100); Monocytes Absolute Auto 0.8 K/mm3 (0.1-0.6); Monocytes Percent Auto 6.4 % (2.6-8.5); Neutrophils Absolute Auto 9.9 K/mm3 (1.3-6.7); Neutrophils Percent Auto 76.9 % (45.5-73.1); Platelet Count Result 232 k/mm3 (150-375); Red Cell Distribution Width 12.9 % (11.5-14.5); White Blood Count 12.9 K/mm3 (4.5-10.0)
--- NOTE | 2021-01-30 21:53 | ED.GENADULT ---
HPI - General Adult General Chief complaint: Vaginal Bleeding Stated complaint: vaginal bleeding 14 weeks 2 days Time Seen by Provider: 01/30/21 20:44 History of Present Illness HPI narrative: Patient is a 25-year-old female who is 14 weeks and 2 days along in her who presents ER with vaginal bleeding. Just prior to arrival she fell to oro of fluid from her vagina and it was bright red blood. She is having no real vaginal cramping. No urinary frequency urgency or dysuria. Unknown blood type. She is a G2, P1. Related Data Allergies Allergy/AdvReac Type Severity Reaction Status Date / Time No Known Allergies Allergy Verified 01/30/21 20:19 Review of Systems Review of Systems: All systems reviewed & are unremarkable except as noted in HPI and below Constitutional: Constitutional: Denies chills, Denies fever(s) and Denies weakness Gastrointestinal: Gastrointestinal: Denies abdominal pain, Denies nausea and Denies vomiting Genitourinary: Genitourinary: Reports abnormal vaginal bleeding, Denies nocturia, Denies dysuria and Denies vaginal discharge PMFSH Past Medical History Medical History (normal spontaneous vaginal delivery) Surgical History Surgical History H/O removal of cyst LEFT UPPER EYELID Family History Family History Father Well adult Mother Well adult Sibling Well adult Sibling Well adult Social History Social History Social History: Single. 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 Alcohol intake: never Substance use: never Gender identity (if verbalized by the patient): Female Spiritual care concerns: No Exam Narrative: Exam Narrative: GENERAL: Well-appearing, well-nourished, and in no acute distress. HEAD: Normocephalic, atraumatic. ENT: Mucous membranes moist. CHEST: Clear to auscultation. No respiratory distress. HEART: Regular rate and rhythm. Normal peripheral pulses. ABDOMEN: Soft, nontender, nondistended. : Normal external genitalia. Vaginal vault with small amount bright red blood and no clots. NO discharge. Cervical os closed w/o presentation of parts or bag of fluid. EXTREMITIES: Normal range of motion. No edema. NEURO: Alert and oriented x3. Course Course Emergency Course: BSUS with movement and FHT's. Discussed with Dr. Alejo, call tomorrow to arrange f/u. Pelvic rest at home. Vital Signs Vital signs: Vital Signs Temperature 97.6 F 01/30/21 20:20 Pulse Rate 108 H 01/30/21 20:20 Respiratory Rate 18 01/30/21 20:20 Blood Pressure 149/90 H 01/30/21 20:20 Pulse Oximetry 100 01/30/21 20:20 Temperature 97.6 F 01/30/21 20:20 Pulse Rate 108 H 01/30/21 20:20 Respiratory Rate 18 01/30/21 20:20 Blood Pressure 149/90 H 01/30/21 20:20 Pulse Oximetry 100 01/30/21 20:20 Medical Decision Making Vital Signs Vital Signs: Vital Signs Temperature 97.6 F 01/30/21 20:20 Pulse Rate 108 H 01/30/21 20:20 Respiratory Rate 18 01/30/21 20:20 Blood Pressure 149/90 H 01/30/21 20:20 Pulse Oximetry 100 01/30/21 20:20 Temperature 97.6 F 01/30/21 20:20 Pulse Rate 108 H 01/30/21 20:20 Respiratory Rate 18 01/30/21 20:20 Blood Pressure 149/90 H 01/30/21 20:20 Pulse Oximetry 100 01/30/21 20:20 Lab Data Result diagrams: 01/30/21 20:32 Labs: Lab Results 01/30/21 01/30/21 01/30/21 Range/Units 20:32 20:32 20:32 WBC 12.9 H (4.5-10.0) K/mm3 RBC 4.10 L (4.2-5.4) M/mm3 Hgb 12.0 (12.0-15.0) g/dL Hct 35.5 L (37.0-47.0) % MCV 86.6 (80-100) fl MCH 29.3 (26-34) pg MCHC 33.8 (32-36) g/dl RDW 12.9 (11.5-14.5) % Plt Count 232 (150-375) k/mm3 MP
== END 2021-01-30 22:16 | disposition home or self-care (01) ==
PROVIDERS: Emergency Provider Emergency Medicine
DX: O20.9 Hemorrhage in early pregnancy, unspecified (principal); Z3A.14 14 weeks gestation of pregnancy
CPT/HCPCS: 36415; 84702; 85025; 85461; 99284

== ENCOUNTER 2021-01-31 15:07 | Outpatient (CLI) | payer OTHER, SELFPAY ==
--- NOTE | ~2021-01-31 | US_ITS ---
EXAMINATION: US OB follow up DATE: 01/31/2021 15:42 INDICATION: Vaginal bleeding. TECHNIQUE: Real-time ultrasound of the pelvis was performed. COMPARISON: Ultrasound 01/20/2021, 12/23/2020 FINDINGS: There is a single living fetus in vertex presentation. The placenta is posterior. heart rate i s 145 beats per minute (bpm). The amniotic fluid volume is subjectively normal. The following biometric data were obtained: Biparietal diameter (BPD): 2.6 cm; head circumference (HC): 10.2 cm; abdominal circumference (AC): 8. 1 cm; femur length (FL): 1.4 cm. These measurements are concordant. Estimated weight is 95 g +/- 14 g, which correlates with 36th percentile when 07/30/21 is used as estimated date of delivery. As single measurements, these parameters are each equal to the following estimated gestational ages: BPD: 14 weeks 4 days. HC: 14 weeks 6 days. AC: 14 weeks 3 days. FL: 14 weeks 0 days. estimated gestational age based solely on measurements from this exam is 14 weeks 3 days +/- 1 weeks 0 days. IMPRESSION: 1. Single living fetus in vertex presentation. 2. Estimated weight is 95 g +/- 14 g, which correlates with 36th percentile when 07/30/21 is use d as estimated date of delivery. This date was set by ultrasound on 12/23/20. 3. Normal placenta. Reviewed, dictated and finalized at location A. OLOGY NURSE IMPRESSION: 1. Single living fetus in vertex presentation. 2. Estimated weight is 95 g +/- 14 g, which correlates with 36th percent ile when 07/30/21 is used as estimated date of delivery. This date was set by yoshi arias on 12/23/20. 3. Normal placenta.
== END 2021-01-31 15:08 | disposition home or self-care (01) ==
LOC: ANHIMG 15:08
PROVIDERS: Visit Provider Obstetrics & Gynecology Gynecology
DX: O26.852 Spotting complicating pregnancy, second trimester (principal); Z3A.00 Weeks of gestation of pregnancy not specified
CPT/HCPCS: 76816

== ENCOUNTER 2021-02-21 13:56 | Outpatient (CLI) | payer OTHER, SELFPAY ==
--- NOTE | ~2021-02-21 | US_ITS ---
US OB limited 02/21/2021 14:35 Indication: Follow-up vaginal bleeding Procedure: High-resolution Limited transabdominal obstetrical ultrasound Comparison: Ultrasound dated 01/31/2021 Findings: There is a single living intrauterine in variable presentation. Placenta is poste rior and measures 1.8 cm to the cervix. heart rate is 142 bpm. Amniotic fluid is subjectively n ormal. Impression: 1: Low-lying posterior placenta measuring 1.8 cm to the cervix. 2: Single living intrauterine in variable presentation. Reviewed, dictated and finalized at location B. Impression: 1: Low-lying posterior placenta measuring 1.8 cm to the cervix. 2: Single living intrauterine in variable presentation.
== END 2021-02-21 13:57 | disposition home or self-care (01) ==
PROVIDERS: Visit Provider Obstetrics & Gynecology
DX: O26.852 Spotting complicating pregnancy, second trimester (principal); Z3A.00 Weeks of gestation of pregnancy not specified
CPT/HCPCS: 76815

== ENCOUNTER 2021-03-07 10:20 | Outpatient (CLI) | payer OTHER, SELFPAY ==
[2021-03-07 10:43] LABS: Basophils Percent Auto 0.2 % (0.2-1.2); Eosinophils Percent Auto 0.3 % (0-4.4); Hematocrit 35.1 % (37.0-47.0); Hemoglobin 11.9 g/dL (12.0-15.0); Immature Granulocyte Absolute 0.05 K/mm3 (0.00-0.031); Immature Granulocyte Percent A 0.5 % (0-0.5); Lymphocytes Absolute Auto 1.89 K/mm3 (0.9-3.2); Lymphocytes Percent Auto 19.8 % (18.3-44.2); Mean Corpuscular HGB Conc 33.9 g/dl (32-36); Mean Corpuscular Volume 85.4 fl (80-100); Monocytes Absolute Auto 0.5 K/mm3 (0.1-0.6); Monocytes Percent Auto 5.2 % (2.6-8.5); Neutrophils Absolute Auto 7.1 K/mm3 (1.3-6.7); Platelet Count Result 230 k/mm3 (150-375); Red Blood Count 4.11 M/mm3 (4.2-5.4); Red Cell Distribution Width 13.4 % (11.5-14.5); White Blood Count 9.6 K/mm3 (4.5-10.0)
[2021-03-07 10:57] LABS: Alanine Aminotransferase 10 U/L (4-35); Albumin Level 3.6 g/dL (3.5-5.1); Alkaline Phosphatase 64 U/L (38-126); Anion Gap 3 mmol/L (8-16); Aspartate Amino Transferase 18 U/L (14-36); Bilirubin,Total 0.1 mg/dL (0.2-1.3); Blood Urea Nitrogen 8 mg/dL (7-17); Calcium 8.6 mg/dL (8.4-10.2); Carbon Dioxide 24 mmol/L (22-30); Chloride 106 mmol/L (98-107); Estimated Glomerular Filt Rate > 60; Glucose 88 mg/dL (65-105); Potassium 3.7 mmol/L (3.4-5.0); Sodium 133 mmol/L (137-145)
[2021-03-07 11:36] LABS: HIV 1/2 Ab P24 Ag Result Negative (Negative)
[2021-03-07 11:42] LABS: Vitamin D 25 Hydroxy 16.3 ng/mL
[2021-03-07 12:02] LABS: Hepatitis B Surface Antigen Negative (Negative); Rubella IgG Antibody 34.5 IU/ML
[2021-03-07 14:22] LABS: Rapid Plasma Reagin Non-Reactive (NonReactive)
[2021-03-10 15:49] LABS: Hemoglobin A1C 4.8 % (<5.7)
== END 2021-03-07 10:21 | disposition home or self-care (01) ==
PROVIDERS: Visit Provider Obstetrics & Gynecology
DX: Z36.9 Encounter for antenatal screening, unspecified (principal)
CPT/HCPCS: 36415; 80053; 82306; 83036; 85025; 86592; 86703; 86762; 86850; 86900; 86901; 87340; G0432

== ENCOUNTER 2021-03-18 11:00 | Outpatient (CLI) | payer OTHER, SELFPAY ==
--- NOTE | ~2021-03-18 | US_ITS ---
EXAMINATION: US OB /maternal detail DATE: 03/18/2021 11:52 INDICATION: anatomic survey. TECHNIQUE: Real-time ultrasound of the pelvis was performed. COMPARISON: Ultrasound 02/21/2021, 01/31/2021, 01/20/2021, 12/23/2020 FINDINGS: There is a single living fetus in variable presentation. The placenta is posterior. heart rate is 126 beats per minute (bpm). The amniotic fluid volume is subjectively normal. The following biometric data were obtained: Biparietal diameter (BPD): 4.7 cm; head circumference (HC): 17.0 cm; abdominal circumference (AC): 15 .4 cm; femur length (FL): 3.4 cm. These measurements are concordant. Estimated weight is 361 g +/- 54 g, which correlates with 23rd percentile when 07/29/21 is used a s estimated date of delivery. As single measurements, these parameters are each equal to the following estimated gestational ages: BPD: 20 weeks 2 days. HC: 19 weeks 4 days. AC: 20 weeks 4 days. FL: 20 weeks 6 days. estimated gestational age based solely on measurements from this exam is 20 weeks 2 days +/- 1 weeks 3 days. IMPRESSION: 1. Single living fetus in variable presentation. 2. Estimated weight is 361 g +/- 54 g, which correlates with 23rd percentile when 07/29/21 is us ed as estimated date of delivery. 3. Normal anatomic survey. Reviewed, dictated and finalized at location A. IMPRESSION: 1. Single living fetus in variable presentation. 2. Estimated weight is 361 g +/- 54 g, which correlates with 23rd percen tile when 07/29/21 is used as estimated date of delivery. 3. Normal anatomic survey.
== END 2021-03-18 11:01 | disposition home or self-care (01) ==
LOC: ANHIMG 11:01
PROVIDERS: Visit Provider Obstetrics & Gynecology
DX: Z34.92 Encounter for supervision of normal pregnancy, unspecified, second trimester (principal); Z3A.20 20 weeks gestation of pregnancy
CPT/HCPCS: 76805

== ENCOUNTER 2021-05-09 14:20 | Outpatient (CLI) | payer OTHER, SELFPAY ==
[2021-05-09 15:54] LABS: Hematocrit 36.4 % (37.0-47.0); Hemoglobin 11.7 g/dL (12.0-15.0)
[2021-05-09 16:03] LABS: Glucose 1 Hour PP 50gm Dose 113 mg/dL
[2021-05-09 16:37] LABS: Vitamin D 25 Hydroxy 26.2 ng/mL
[2021-05-09 16:44] LABS: HIV 1/2 Ab P24 Ag Result Negative (Negative)
== END 2021-05-09 14:21 | disposition home or self-care (01) ==
LOC: ANHLAB 14:22
PROVIDERS: Visit Provider Nurse Practitioner
DX: Z34.93 Encounter for supervision of normal pregnancy, unspecified, third trimester (principal); E55.9 Vitamin D deficiency, unspecified
CPT/HCPCS: 36415; 82306; 82947; 85014; 85018; 86703; G0432

== ENCOUNTER 2021-05-18 19:44 | Observation (INO) | payer OTHER, SELFPAY ==
[2021-05-18 20:07] VITALS: TEMP 37.3
[2021-05-18 20:10] VITALS: BP 124/68; PULSE 94
[2021-05-18 21:19] LABS: Add Urine Microscopic? YES; Appearance Urine Clear (Clear); Bacteria Urine Trace /hpf; Bilirubin Urine Negative (Negative); Blood Urine Negative (Negative); Color Urine Yellow (Yellow); Glucose Urine UA Negative (Negative); Ketones Urine Negative (Negative); Leukocyte Esterase Ur Negative LEU/UL (Negative); Mucus Urine Rare /lpf; Nitrate Urine Negative (Negative); Protein Urine Negative (Negative); Specific Grav Ur 1.016 (1.001-1.035); Squamous Epithelial Cell Urine Few /hpf (Few); Urobilinogen Urine Negative mg/dL (<2.0); WBC Urine 0-3 /hpf
[2021-05-18 21:40] LABS: Fetal Fibronectin Negative
--- NOTE | 2021-05-30 10:15 | PM.OBTRLD ---
OB - Triage/Final Diagnosis Visit Information Comments/Additional reasons for admission: I have assessed the risk for this patient, Klaus Valdivia, and determined that she would benefit from observation care. Evaluation Laboratory results: Laboratory Tests 05/18/21 05/18/21 21:10 21:10 Urine Color Yellow Urine Appearance Clear Urine pH 6.0 Ur Specific [place] 1.016 Urine Protein Negative Urine Glucose (UA) Negative Urine Ketones Negative Ur Blood (Man) Negative Urine Nitrate Negative Urine Bilirubin Negative Urine Urobilinogen Negative Leukocyte Esterase Rfl Negative Urine WBC 0-3 Ur Squamous Epith Cells Few Urine Bacteria Trace Urine Mucus Rare Fibronectin Negative Final Diagnosis (1) Cervical mucus plug of passed: Status: Acute
== END 2021-05-18 21:59 | disposition home or self-care (01) ==
PROVIDERS: Admitting Provider Obstetrics & Gynecology; Visit Provider Obstetrics & Gynecology
DX: O26.899 Other specified pregnancy related conditions, unspecified trimester (principal); O42.90 Premature rupture of membranes, unspecified as to length of time between rupture and onset of labor, unspecified weeks of gestation; Z3A.00 Weeks of gestation of pregnancy not specified
CPT/HCPCS: 81001; 82731; G0378; G0379

== ENCOUNTER 2021-07-21 04:59 | Inpatient (IN) | payer OTHER, SELFPAY ==
[2021-07-21] VITALS (79 sets, daily range): BP systolic 87–155; BP diastolic 36–130; PULSE 61–130; RESP 16–18; TEMP 35.5–36.9; O2SAT 83–100
[2021-07-21] MEDS: AMPICILLIN 2 GM/NS 100 ML 2 GM/100 ML BAG IVPB (07:05)
[2021-07-21] MEDS: OXYTOCIN 30 UNITS/NS 500 ML 30 UNITS/500 ML BAG IV CONT (07:05)
[2021-07-21] MEDS: LACTATED RINGERS 1,000 ML 125 ML IV CONT ×3 (07:05→11:09)
[2021-07-21 07:09] LABS: Basophils Percent Auto 0.1 % (0.2-1.2); Eosinophils Percent Auto 0.2 % (0-4.4); Hematocrit 37.4 % (37.0-47.0); Hemoglobin 12.2 g/dL (12.0-15.0); Immature Granulocyte Absolute 0.04 K/mm3 (0.00-0.031); Immature Granulocyte Percent A 0.4 % (0-0.5); Lymphocytes Absolute Auto 2.08 K/mm3 (0.9-3.2); Lymphocytes Percent Auto 20.5 % (18.3-44.2); Mean Corpuscular HGB Conc 32.6 g/dl (32-36); Mean Corpuscular Hemoglobin 28.2 pg (26-34); Mean Corpuscular Volume 86.6 fl (80-100); Mean Platelet Volume 10.5 fl (7.4-10.4); Monocytes Absolute Auto 0.8 K/mm3 (0.1-0.6); Monocytes Percent Auto 7.5 % (2.6-8.5); Neutrophils Absolute Auto 7.2 K/mm3 (1.3-6.7); Neutrophils Percent Auto 71.3 % (45.5-73.1); Platelet Count Result 234 k/mm3 (150-375); Red Blood Count 4.32 M/mm3 (4.2-5.4); White Blood Count 10.2 K/mm3 (4.5-10.0)
--- NOTE | 2021-07-21 07:57 | LDADM ---
This patient, Klaus Valdivia, was admitted to Labor/Delivery/Recovery 107 on 07/21/21 at 04:59. Plans for labor, pain management and were discussed with patient. Patient/family oriented to hospital policies and general routines including ID bracelet, bed and alarms, visiting hours, pain management, procedures, bathroom and other care routines, personal items, smoking policy, room service/diet and guest tray routines, security routines, and visiting hours. Patient/Family are encouraged to report perceived risks to care and to ask questions if they do not understand what they are told or what they should do. See OBIX for further documentation.
--- NOTE | 2021-07-21 08:03 | WPDOBADMIT ---
Obstetrics - Admit Note Admission Note: record reviewed. No pertinent additions to the history and/or any subsequent changes in the physical findings that are not consistent with the expected course of the were found. Additions to the history and/or subsequent changes in the physical findings follow. Here for MIL at 39 wks. cervix 3-4/80/-2 posterior. AROM with clear fluid. FHTs reactive.
[2021-07-21 09:57] LABS: Rapid Plasma Reagin Non-Reactive (NonReactive)
--- NOTE | 2021-07-21 10:52 | WPDANESEPPF ---
Anes - Initial Pre Proc Eval Procedure: labor epidural Date/Time: 07/21/21 10:52 Surgeon: Aroldo Alejo MD Pre Op Diagnosis: labor pain Pre Op Diagnosis: IOL Patient Data Age: 25 Gender: F Height: 1.65 m Weight: 100 kg Last Vital Signs Temp 36.6 C 07/21/21 09:21 Pulse 74 07/21/21 10:51 BP 110/61 07/21/21 10:51 Pulse Ox 100 07/21/21 10:49 Allergies Allergy/AdvReac Type Severity Reaction Status Date / Time No Known Allergies Allergy Verified 01/30/21 20:19 Home Medications Medication Instructions Recorded Confirmed Type Classic 1 tablet PO DAILY 05/18/21 07/21/21 History famotidine 10 mg PO DAILY PRN 07/21/21 07/21/21 History Laboratory Tests 07/21/21 07/21/21 07/21/21 06:54 06:54 06:54 WBC 10.2 K/mm3 H K/mm3 (4.5-10.0) RBC 4.32 M/mm3 M/mm3 (4.2-5.4) Hgb 12.2 g/dL g/dL (12.0-15.0) Hct 37.4 % % (37.0-47.0) MCV 86.6 fl fl (80-100) MCH 28.2 pg pg (26-34) MCHC 32.6 g/dl g/dl (32-36) RDW 13.0 % % (11.5-14.5) Plt Count 234 k/mm3 k/mm3 (150-375) MPV 10.5 fl H fl (7.4-10.4) Immature Gran % (Auto) 0.4 % % (0-0.5) Neut % (Auto) 71.3 % % (45.5-73.1) Lymph % (Auto) 20.5 % % (18.3-44.2) [place] % (Auto) 7.5 % % (2.6-8.5) Eos % (Auto) 0.2 % % (0-4.4) Baso % (Auto) 0.1 % L % (0.2-1.2) Lymph # (Auto) 2.08 K/mm3 K/mm3 (0.9-3.2) [place] # (Auto) 0.8 K/mm3 H K/mm3 (0.1-0.6) Eos # (Auto) 0.0 K/mm3 K/mm3 (0-0.3) Baso # (Auto) 0.0 K/mm3 K/mm3 (0.0-0.1) Abs Immat Gran (auto) 0.04 K/mm3 H K/mm3 (0.00-0.031) Absolute Neuts (auto) 7.2 K/mm3 H K/mm3 (1.3-6.7) Absolute Nucleated RBC 0.0 K/mm3 K/mm3 (0.0-0.012) Nucleated RBC % 0.0 % % (0.0-0.2) RPR Non-reactive (NonReactive) Blood Type O Positive Antibody Screen Negative Patient hx anesthesia problems: none Family hx anesthesia problems: none [facility] Past Medical History Medical History (Updated 05/30/21 @ 10:16 by Aroldo Alejo MD) (normal spontaneous vaginal delivery) Surgical History Surgical History H/O removal of cyst LEFT UPPER EYELID Family History Family History Father Well adult Mother Well adult Sibling Well adult Sibling Well adult Social History Social History Social History: Single. 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 Alcohol intake: never Substance use: never Gender identity (if verbalized by the patient): Female Spiritual care concerns: No Anes - Eval Final PreProcedure Day of Procedure 07/21/21 10:52 Patient weight: obese ASA classification: II Anesthesia type and monitoring: regional epidural Informed Consent: The patient's anesthetic plan and its attendant risks and benefits were discussed with the patient/family/POA. Questions were solicited and answers provided to the satisfaction of the patient/family/POA.
[2021-07-21] MEDS: AMPICILLIN 1 GM/NS 50 ML 1 GM/50 ML BAG IVPB (11:09)
--- NOTE | 2021-07-21 13:07 | P.PCNOB_ITS ---
OB - Delivery Note Procedure Delivery date: 07/21/21 Procedure: events: Labor Induction Intrapartal events: None Induction method: AROM and per pitocin protocol Delivery monitor: external FHT and external uterine Route of delivery: Laceration Description: None Specimen: Yes (placenta) Quantitative Blood Loss (ml): 75 Anesthesia type: Epidural Disposition: PACU [place] Baby Date of : 07/21/21 Weeks of gestation at delivery: 39 gender: Female Weight (pounds): 5 Weight (ounces): 4 presentation: vertex position: Right Occiput Anterior Placenta delivery description: Spontaneous cord vessel description: 3 Vessels score one minute: 8 score five minutes: 9
--- NOTE | 2021-07-21 13:08 | P.DS_ITS ---
DS: Admitting Diagnosis Admitting Diagnosis IUP 39wks MIL DS: Discharge Diagnosis Discharge Diagnosis (1) 39 weeks gestation of : Code(s): Z3A.39 - 39 weeks gestation of Status: Acute (2) (normal spontaneous vaginal delivery): Code(s): O80 - Encounter for full-term uncomplicated delivery Status: Acute (3) Spinal headache: Code(s): G97.1 - Other reaction to spinal and lumbar puncture Status: Acute OB - DS: Summary OB Procedures : Ultrasound OB Procedures Intrapartum: Spontaneous Vag Delivery OB Procedures: : None Peripartum Data Infant Delivery Method: Natural Vaginal Laceration Description: None complications: none Status at Discharge Functional status at discharge: independent ambulation Overall status at discharge: patient is progressing back to baseline Time Spent with Patient Time attestation: Total time spent providing and/or coordinating discharge services: DS: Data Data Completed and Pending Labs on day of discharge: Labs from last 24 hours 07/21/21 07/21/21 07/21/21 06:54 06:54 06:54 WBC 10.2 H RBC 4.32 Hgb 12.2 Hct 37.4 MCV 86.6 MCH 28.2 MCHC 32.6 RDW 13.0 Plt Count 234 MPV 10.5 H Immature Gran % (Auto) 0.4 Neut % (Auto) 71.3 Lymph % (Auto) 20.5 [place] % (Auto) 7.5 Eos % (Auto) 0.2 Baso % (Auto) 0.1 L Lymph # (Auto) 2.08 [place] # (Auto) 0.8 H Eos # (Auto) 0.0 Baso # (Auto) 0.0 Abs Immat Gran (auto) 0.04 H Absolute Neuts (auto) 7.2 H Absolute Nucleated RBC 0.0 Nucleated RBC % 0.0 RPR Non-reactive Blood Type O Positive Antibody Screen Negative Discharge Plan Discharge Attending physician on discharge: Shilpi Mcginnis Discharging Clinician: Shilpi Mcginnis Anticipated Discharge Date/Time: 07/23/21 13:09 Patient Disposition: Home, Self-Care Activity: may shower and pelvic rest Diet: regular Patient Instructions: Antibiotic Form Stand Alone Forms: General Discharge Information Follow-up/Referrals: Aroldo Alejo MD [Physician] - 6 Weeks Discharge Medications: New hydrocodone-acetaminophen 5-325 mg tablet 1 tablet PO Q4H PRN (Reason: pain) Qty: 20 RF: 0 Continued Classic 28 mg iron- 800 mcg Tablet 1 tablet PO DAILY RF: 0 Discontinued famotidine 10 mg Tablet 10 mg PO DAILY PRN (Reason: Heartburn) RF: 0 Date of admission: 07/21/21 04:59 Primary Care Provider: PHYSICIAN,CONTINUOUS PROCESS [employer]EE RO[employer]ER Admitting Provider: Aroldo Alejo Attending physician on admission: Aroldo Alejo Condition: Stable
[2021-07-21] MEDS: OXYTOCIN 30 UNITS/NS 500 ML 30 UNITS/500 ML BAG 125 UNITS IV CONT (13:32)
[2021-07-21] MEDS: COSYNTROPIN 0.25 MG/ML VIAL 0.75 MG IV PUSH (14:22)
[2021-07-21] MEDS: WITCH HAZEL 40 PADS 1 PAD TOPICAL (15:13)
[2021-07-21] MEDS: BENZOCAINE 20% AER SPR (*SP) 56 GM CAN 1 SPRAY TOPICAL (15:13)
--- NOTE | 2021-07-21 15:33 | PC.NURSE ---
Patient transferred to post room #288 per wheelchair from labor and delivery. Support person present. Oriented to unit, room, information board, rooming in, admission packet and security measures. Patient verbalizes understanding.
[2021-07-21] MEDS: IBUPROFEN 600 MG TABLET PO (16:22)
[2021-07-21] MEDS: HYDROcodone/acetaminophen (*CRX) 10-325 MG TABLET 1 TAB PO (21:19)
[2021-07-22] VITALS: BP 103/55; PULSE 64; RESP 16; TEMP 36.4; O2SAT 100
[2021-07-22] MEDS: IBUPROFEN 600 MG TABLET PO ×3 (02:06→17:26)
[2021-07-22 04:00] VITALS: BP 107/64; PULSE 81; RESP 16; TEMP 36.6; O2SAT 98
[2021-07-22 04:52] LABS: Hematocrit 36.3 % (37.0-47.0); Hemoglobin 11.8 g/dL (12.0-15.0)
--- NOTE | 2021-07-22 07:29 | PM.OBPNVD ---
OB - PN: Subj Subjective Date/time seen: 07/22/21 07:29 Patient comments: other (still with headache) [place] baby status: doing well OB - PN: Obj Data Labs CBC & Chem 7: 07/22/21 04:28 Labs: Laboratory Results - last 24 hr 07/21/21 07/21/21 07/22/21 06:54 06:54 04:28 Hgb 11.8 L Hct 36.3 L RPR Non-reactive Blood Type O Positive Antibody Screen Negative OB - PN A/P Plan day: 1 Plan: routine care, discharge home (possible if headache resolved) and follow up 6 weeks Comments: spinal headache-anesthesia to evaluate today Time Spent With Patient Time: Total time spent is greater than 50% in coordination of care (as documented) at patient's floor/unit and/or counseling patient: Exam : Bimanual exam- vagina & uterus: other (Uterus firm, nt @U)
--- NOTE | 2021-07-22 08:30 | PC.NURSE ---
PT introductions made and plan of care discussed per post , pain management, breast feeding, supplementing, daily care activities. PT received such instructions per one to one discussion, mom baby care guide and demonstrations. PT and fob are recipients of such instructions and no barriers to learning identified at this time. PT verbalized understanding of such care.
[2021-07-22] MEDS: MULTIVIT/MIN/PREN/FOL AC/IRON TABLET 1 TAB PO (08:41)
[2021-07-22] MEDS: DOCUSATE SODIUM 100 MG CAPSULE PO ×2 (08:41→17:26)
[2021-07-22] MEDS: LANOLIN (LANSINOH) 7.5 GM CREAM 1 APPLIC TOPICAL (08:42)
[2021-07-22 08:45] VITALS: BP 126/81; PULSE 76; RESP 18; TEMP 36.4; O2SAT 100
[2021-07-22] MEDS: HYDROcodone/acetaminophen (*CRX) 5-325 MG TABLET 1 TAB (08:45)
--- NOTE | 2021-07-22 10:09 | WPDANLDPN2 ---
Anes-Prog Note L&D Date/Time: 07/22/21 10:09 Comfortable throughout: labor and delivery Neuraxial method: epidural Epidural/Spinal procedure site: tender Neuro status: Neuro function grossly intact. patient complained of tenderness at epidural site and headache rated at 5/10 when standing. Patient sitting up in bed holding baby and denying pain at this time. Cardiovascular status: normal Respiratory status: normal Airway patency: baseline Mental status: baseline Post-Op hydration status: normal Vital Signs: Last Vital Signs Temp 36.4 C 07/22/21 08:45 Pulse 76 07/22/21 08:45 Resp 18 07/22/21 08:45 BP 126/81 07/22/21 08:45 Pulse Ox 100 07/22/21 08:45 Pain score (VAS): 5 Post-procedural complaints: none Patient feedback: Patient satisfied with anesthetic care.
--- NOTE | 2021-07-22 10:40 | PC.NURSE ---
Epidural catheter removed intact and tip intact per Dr Barton
[2021-07-22] MEDS: ACETAMINOPHEN 325 MG TABLET 650 MG PO ×2 (12:25→17:25)
[2021-07-22 19:16] VITALS: BP 103/61; PULSE 59; RESP 18; TEMP 36.3; O2SAT 100
[2021-07-23] MEDS: IBUPROFEN 600 MG TABLET PO ×2 (04:12→12:16)
[2021-07-23] MEDS: ACETAMINOPHEN 325 MG TABLET 650 MG PO ×2 (04:12→12:17)
--- NOTE | 2021-07-23 07:23 | P.PNOB_ITS ---
OB - PN: Subj Subjective Date/time seen: 07/23/21 07:23 Patient comments: other (still with significant headache) baby status: doing well OB - PN: Obj Data Labs CBC & Chem 7: 07/22/21 04:28 OB - PN A/P Assessment and Plan (1) Spinal headache: Code(s): G97.1 - Other reaction to spinal and lumbar puncture Status: Acute Assessment and Plan: mgmt per anesthesia; [place] to pharmacy Plan day: 2 Plan: routine care, discharge home and follow up 6 weeks Time Spent With Patient Time: Total time spent is greater than 50% in coordination of care (as documented) at patient's floor/unit and/or counseling patient: Exam : Bimanual exam- vagina & uterus: other (Uterus firm, nt @U)
[2021-07-23 08:15] VITALS: BP 120/78; PULSE 67; RESP 18; TEMP 36.6; O2SAT 100
[2021-07-23 09:00] VITALS: PULSE 67; RESP 18; O2SAT 100
--- NOTE | 2021-07-23 09:15 | PC.NURSE ---
Consult with pt., mother is listed as and bottle feeding. Several times during mother's stay assist has been offered to assist with and mother has declined to bottle feed. Assist has been offered to assist mother with initiation of pumping until she is ready to put to breast and mother has declined. Reviewed stimulation of of milk supply if is not at breast. Reviewed breast pump care and usage, pumping schedule, nipple care, and collection and storage of breast milk. Mother states she will discuss with FOB and will call out if she wishes to initiate p umping.
[2021-07-23] MEDS: MULTIVIT/MIN/PREN/FOL AC/IRON TABLET 1 TAB PO (10:16)
[2021-07-23] MEDS: DOCUSATE SODIUM 100 MG CAPSULE PO (10:16)
--- NOTE | 2021-07-23 12:00 | PC.NURSE ---
PT received discharge instructions per protocol and verbalized understanding of such care.
--- NOTE | 2021-07-23 12:30 | PC.NURSE ---
PT discharged to home ambulatory accompanied by infant and significant other and taken to waiting car. Follow up appts confirmed
== END 2021-07-23 12:30 | disposition home or self-care (01) | DRG 807 ==
LOC: ANHLDR 13:09 → ANHOB2 07-22 07:31 → ANHLDR 07-24 11:09 → ANHOB2 07-24 11:09
PROVIDERS: Admitting Provider Obstetrics & Gynecology Gynecology; Visit Provider Obstetrics & Gynecology Gynecology
DX: O99.824 Streptococcus B carrier state complicating childbirth (principal); Z37.0 Single live birth; Z3A.39 39 weeks gestation of pregnancy; O36.8330 Maternal care for abnormalities of the fetal heart rate or rhythm, third trimester, not applicable or unspecified; O89.4 Spinal and epidural anesthesia-induced headache during the puerperium; O99.214 Obesity complicating childbirth; E66.9 Obesity, unspecified
CPT/HCPCS: 36415; 85014; 85018; 85025; 86592; 86850; 86900; 86901; 88307; A9270; J0290; J0834; J2590; J2795; J7120

== ENCOUNTER 2021-07-24 20:46 | Emergency (ER) | payer OTHER, SELFPAY ==
[2021-07-24] VITALS (12 sets, daily range): BP systolic 128–134; BP diastolic 79–91; PULSE 69–92; RESP 18; TEMP 36.7; O2SAT 91–100
[2021-07-24 21:28] LABS: Basophils Percent Auto 0.2 % (0.2-1.2); Eosinophils Percent Auto 0.2 % (0-4.4); Immature Granulocyte Absolute 0.06 K/mm3 (0.00-0.031); Immature Granulocyte Percent A 0.5 % (0-0.5); Lymphocytes Percent Auto 19.8 % (18.3-44.2); Mean Corpuscular HGB Conc 32.5 g/dl (32-36); Mean Corpuscular Volume 89.3 fl (80-100); Mean Platelet Volume 10.4 fl (7.4-10.4); Monocytes Absolute Auto 0.6 K/mm3 (0.1-0.6); Monocytes Percent Auto 4.8 % (2.6-8.5); Neutrophils Absolute Auto 9.4 K/mm3 (1.3-6.7); Neutrophils Percent Auto 74.5 % (45.5-73.1); Platelet Count Result 256 k/mm3 (150-375); Red Blood Count 4.48 M/mm3 (4.2-5.4); White Blood Count 12.6 K/mm3 (4.5-10.0)
[2021-07-24] MEDS: KETOROLAC 15 MG/ML VIAL (*BKC) IV PUSH (21:36)
[2021-07-24] MEDS: diphenhydrAMINE HCl CAP 25 MG CAPSULE PO (21:36)
[2021-07-24] MEDS: ACETAMINOPHEN 500 MG TABLET 1000 MG PO (21:36)
[2021-07-24] MEDS: PROCHLORPERAZINE EDISYLATE 10 MG/2 ML VIAL IV PUSH (21:37)
[2021-07-24] MEDS: SODIUM CHLORIDE 0.9% IV 1,000 ML 999 ML IV CONT (21:37)
[2021-07-24 21:38] LABS: Anion Gap 6 mmol/L (8-16); Blood Urea Nitrogen 7 mg/dL (7-17); Calcium 9.7 mg/dL (8.4-10.2); Carbon Dioxide 24 mmol/L (22-30); Chloride 106 mmol/L (98-107); Estimated CRCL calculation 107 ml/min; Estimated Glomerular Filt Rate > 60; Glucose 91 mg/dL (65-110); Potassium 3.8 mmol/L (3.4-5.0); Sodium 136 mmol/L (137-145)
--- NOTE | 2021-07-24 21:41 | ED.HA ---
HPI - Headache General Chief Complaint: Headache Stated Complaint: spinal headache, n/v Time Seen by Provider: 07/24/21 20:58 History of Present Illness HPI Narrative: Patient presents with headache. Patient reports she she gave a few days ago and had her epidural removed. Since then she has had a intermittent headache. She most notes that when she sits up or walks around. It is associated with nausea and vomiting. Her headache has been getting progressively worse she is attempted wjri-yzm-[id number] medications and fluids and continues to have a headache so she returned to the ER for evaluation. Patient reports she was counseled about a spinal leak after an epidural and is concerned that is what is going on. Denies any changes in vision, focal areas of numbness or weakness. She denies any fevers or neck pain. She denies any IV drug use. Related Data Home Medications Medication Instructions Recorded Confirmed Classic 1 tablet PO DAILY 05/18/21 07/21/21 Allergies Allergy/AdvReac Type Severity Reaction Status Date / Time No Known Allergies Allergy Verified 01/30/21 20:19 Review of Systems Review of Systems: CONSTITUTIONAL: Denies fever, chills, or sweats. EYES: Denies visual changes, redness, or discharge. ENT: Denies rhinorrhea, congestion, sore throat, or otalgia. CARDIOVASCULAR: Denies chest pain, palpitations, or edema. RESPIRATORY: Denies cough or dyspnea. GASTROINTESTINAL: Denies abdominal pain, nausea, vomiting, or diarrhea. GENITOURINARY: Denies dysuria or hematuria. SKIN: Denies rash or itching. MUSCULOSKELETAL: Denies back pain, joint pain, or myalgia. NEUROLOGIC: Denies numbness, dizziness, or weakness. PSYCHIATRIC: Denies anxiety or depression. All systems reviewed & are unremarkable except as noted in HPI and below PMFSH Past Medical History Medical History (normal spontaneous vaginal delivery) Surgical History Surgical History H/O removal of cyst LEFT UPPER EYELID Family History Family History Father Well adult Mother Well adult Sibling Well adult Sibling Well adult Social History Social History Social History: Single. 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 Alcohol intake: never Substance use: never Gender identity (if verbalized by the patient): Female Spiritual care concerns: No Exam Narrative: GENERAL: Well-appearing, well-nourished, and in no acute distress. HEAD: Normocephalic, atraumatic. EYES: PERRLA and EOMI. ENT: Nares clear, no rhinorrhea or epistaxis. Mucous membranes moist. NECK: Supple. No masses. No JVD EXTREMITIES: Normal range of motion. No edema. SKIN: Warm, dry, no rash. NEURO: Cranial nerves II through XII are intact. Patient has 5 out of 5 strength in all extremities, sensation intact to light touch in all extremities. Alert and oriented x3. PSYCH: Normal mood and affect. Course Vital Signs Vital signs: Vital Signs Temperature 36.7 C 07/24/21 20:54 Pulse Rate 69 07/24/21 20:54 Respiratory Rate 18 07/24/21 20:54 Blood Pressure 129/81 07/24/21 20:54 Pulse Oximetry 100 07/24/21 20:54 Temperature 36.7 C 07/24/21 21:11 Pulse Rate 92 07/24/21 22:55 Respiratory Rate 18 07/24/21 22:55 Blood Pressure 130/86 07/24/21 22:55 Pulse Oximetry 100 07/24/21 22:55 MDM - Headache MDM Narrative Medical decision making narrative: H&P as above, vss, pt looks clinically well, exam without focal neurological deficits, labs with mild leukocytosis otherwise clinically unremarkable, additional labs/img considered. symptomatic relief available as needed, on reevaluation pt continues to looks clinically well reporting large improvement in sympto
== END 2021-07-24 22:56 | disposition home or self-care (01) ==
PROVIDERS: Emergency Provider Emergency Medicine
DX: O89.4 Spinal and epidural anesthesia-induced headache during the puerperium (principal); G97.1 Other reaction to spinal and lumbar puncture
CPT/HCPCS: 36415; 80048; 85025; 96361; 96374; 96375; 99284; A9270; J0780; J1885; J7030

== ENCOUNTER 2021-07-25 17:59 | Outpatient (CLI) | payer OTHER, SELFPAY ==
[2021-07-25 18:19] VITALS: BP 128/83; PULSE 71; RESP 18; TEMP 36.2; O2SAT 100
[2021-07-25 18:20] VITALS: PULSE 70; O2SAT 100
[2021-07-25 18:21] VITALS: BP 128/83; PULSE 65
--- NOTE | 2021-07-25 19:17 | P.PCNANE_ITS ---
Anes - Epidural Blood Patch PN Date/Time: 07/25/21 19:17 Consent: I have discussed with the patient/family/POA, the rationale of a lumbar epidural autologous blood patch for the treatment of post-dural puncture headache (spinal headache), including associated potential risks, benefits, comp lications and side effects. I have also discussed more conservative treatment options such as intravenous hydration, caffeine and non-prescription analgesics. The patient/family/POA, understand(s) and wish(es) to proceed with epidural autologous blood patch as treatment for the patient's post-dural puncture headache. Time-Out: A pre-procedural Time-Out was completed immediately before starting the procedure and confirmed: Patient Identification, Site, Procedure, Patient Position and the Availability of Requisite Equipment. Clinical Indications: dural puncture headache Epidural Insertion Note Patient position: sitting Skin prep: chlorhexidine Needle: 18 gauge Tuohy-Schliff Technique: loss of resistance Skin anesthesia: lidocaine 1% Observations: tolerated well and blood (20cc blood drawn from left AC under sterile conditions by OB RN) Complications: none
[2021-07-25 19:40] VITALS: BP 144/76; PULSE 63
[2021-07-25] MEDS: IBUPROFEN 400 MG TABLET 800 MG PO (20:00)
[2021-07-25 20:46] VITALS: BP 129/83; PULSE 72
--- NOTE | 2021-07-25 20:49 | PC.NURSE ---
2044 - upon entering the room the pt was up in the bathroom with assistance from her significant other. States she is feeling better and would like to go home. D/C instructions given and gone over; pt has no questions and understands d/c paperwork. Pt requesting a wheelchair to leave the unit to [address].
== END 2021-07-25 20:53 | disposition home or self-care (01) ==
LOC: ANHOBOP 18:05 → ANHOBPP 18:08
PROVIDERS: Visit Provider Obstetrics & Gynecology Gynecology
DX: O74.5 Spinal and epidural anesthesia-induced headache during labor and delivery (principal)
CPT/HCPCS: 62273; 99199; A9270

== ENCOUNTER 2022-07-14 11:03 | Emergency (ER) | payer OTHER, BC, SELFPAY ==
--- NOTE | ~2022-07-14 | XR_ITS ---
EXAMINATION: XR foot LT min 3V DATE: 07/14/2022 11:22 INDICATION: Pain at the distal left fifth toe post injury 2 days prior TECHNIQUE: Dorsoplantar, two oblique and lateral views of the left foot were obtained. COMPARISON: None. FINDINGS: Alignment is normal. No fracture. 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 No cortical erosions or periosteal reaction. Soft tissues are unremarkab le. IMPRESSION: 1. No acute osseous abnormality. Reviewed, dictated and finalized at location A.
[2022-07-14 11:11] VITALS: BP 122/78; PULSE 107; RESP 16; TEMP 37.1; O2SAT 99
--- NOTE | 2022-07-14 11:22 | ED.LOWEXIN ---
HPI - Extremity Injury (Lower) General Chief Complaint: Extremity Injury, Lower Stated Complaint: injury left 5th digit toe Time Seen by Provider: 07/14/22 11:35 Source: patient Mode of arrival: ambulatory Limitations: no limitations History of Present Illness HPI Narrative: 26-year-old female presents with concern for toe pain. Reports 3 days ago she may have hit the toe on her couch. She reports bruising, swelling. Reports pain, worsening pain with weightbearing. Reports she stands at work and is concerned about going to work with her injury. She reports using Tylenol without relief complaint: foot injury Related Data Allergies Allergy/AdvReac Type Severity Reaction Status Date / Time No Known Allergies Allergy Verified 07/14/22 11:17 Review of Systems Review of Systems: CONSTITUTIONAL: Denies malaise, chills, sweats, or fever. SKIN: Denies laceration, abrasion, warmth, redness MUSCULOSKELETAL: Reports left fifth digit foot pain with swelling and bruising NEUROLOGIC: Denies numbness, weakness All systems reviewed & are unremarkable except as noted in HPI and below PMFSH Past Medical History Medical History (normal spontaneous vaginal delivery) Surgical History Surgical History H/O removal of cyst LEFT UPPER EYELID Family History Family History Father Well adult Mother Well adult Sibling Well adult Sibling Well adult Social History Social History Social History: Single. 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 There is no relevant family history pertinent to the presenting complaint Exam Narrative: GENERAL: Well-appearing, well-nourished, and in no acute distress. HEAD: Normocephalic EYES: PERRLA, sclera clear ENT: Nares clear. Mucous membranes moist. NECK: Supple. CHEST: No respiratory distress. Speaks in full sentences. HEART: Regular rate and rhythm. EXTREMITIES: Fifth digit of left foot is edematous, ecchymotic, tender with good cap refill, normal sensation, grossly normal strength SKIN: Warm, dry, no visible rash. NEURO: Alert and oriented x3. PSYCH: Normal mood and affect Course Course Emergency Course: Patient is aware of diagnosis, understands and agrees to treatment plan. Anticipatory guidance given. Patient agrees to follow-up as directed and is aware of reasons to seek care at the emergency department. Portions of this record may have been created with voice recognition software Level of Care: Express Care Visit Vital Signs Vital signs: Vital Signs Temperature 98.7 F 07/14/22 11:11 Pulse Rate 107 H 07/14/22 11:11 Respiratory Rate 16 07/14/22 11:11 Blood Pressure 122/78 07/14/22 11:11 Pulse Oximetry 99 07/14/22 11:11 Oxygen Delivery Room Air 07/14/22 11:11 Temperature 98.7 F 07/14/22 11:11 Pulse Rate 107 H 07/14/22 11:11 Respiratory Rate 16 07/14/22 11:11 Blood Pressure 122/78 07/14/22 11:11 Pulse Oximetry 99 07/14/22 11:11 Oxygen Delivery Room Air 07/14/22 11:11 Reviewed. MDM - Extremity Injury (Lower) MDM Narrative Medical decision making narrative: Patients injury and pain is consistent with musculoskeletal etiology. No signs of neurological or vascular compromise on exam. Compartments and tissues are soft without signs of compartment syndrome. Pain is felt appropriate for further evaluation on an outpatient basis. Imaging Data Radiologist's impression: EXAMINATION: XR foot LT min 3V DATE: 07/14/2022 11:22 TINA
== END 2022-07-14 11:51 | disposition home or self-care (01) ==
PROVIDERS: Emergency Provider Nurse Practitioner
DX: S90.122A Contusion of left lesser toe(s) without damage to nail, initial encounter (principal); X58.XXXA Exposure to other specified factors, initial encounter
CPT/HCPCS: 73630; 99213; G0463

== ENCOUNTER 2022-10-25 18:12 | Emergency (ER) | payer OTHER, SELFPAY ==
[2022-10-25 18:22] VITALS: BP 113/68; PULSE 94; RESP 16; TEMP 37.1; O2SAT 99
--- NOTE | 2022-10-25 18:22 | ED.URI ---
HPI - URI/Sore Throat General Chief Complaint: Upper Respiratory Infection Stated Complaint: Chest tightness Time Seen by Provider: 10/25/22 18:24 Source: patient and RN notes reviewed Mode of arrival: ambulatory Limitations: no limitations History of Present Illness HPI Narrative: 26-year-old female presents with concern for 3 day history of body aches, congestion, cough, fatigue, sore throat, intermittent fever. Reports exposure to COVID. Reports she has been taking ibuprofen and antihistamines. MD elicited complaint: cough and sore throat Related Data Home Medications Medication Instructions Recorded Confirmed No Home Medications 10/25/22 10/25/22 Allergies Allergy/AdvReac Type Severity Reaction Status Date / Time No Known Allergies Allergy Verified 10/25/22 18:23 Review of Systems Review of Systems: CONSTITUTIONAL: Reports malaise, chills, sweats, or fever. EYES: Denies visual changes, redness, or discharge. ENT: Reports rhinorrhea, congestion, sore throat. CARDIOVASCULAR: Denies chest pain, palpitations, or edema. RESPIRATORY: Reports cough. Denies dyspnea. GASTROINTESTINAL: Denies abdominal pain, nausea, vomiting, diarrhea SKIN: Denies rash or itching. MUSCULOSKELETAL: Reports myalgia. NEUROLOGIC: Reports headache. All systems reviewed & are unremarkable except as noted in HPI and below PMFSH Past Medical History Medical History (normal spontaneous vaginal delivery) Surgical History Surgical History H/O removal of cyst LEFT UPPER EYELID Family History Family History Father Well adult Mother Well adult Sibling Well adult Sibling Well adult Social History Social History Social History: Single. 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 There is no relevant family history pertinent to the presenting complaint Exam Narrative: GENERAL: Well-appearing, well-nourished, and in no acute distress. HEAD: Normocephalic EYES: PERRLA, conjunctivae clear ENT: Nares clear, turbinates edematous and erythematous, clear discharge. Mucous membranes moist. TM pearly lyn with dull light reflex bilaterally; no tragal tenderness. Oropharynx not erythematous without lesions. Tonsils not enlarged and without exudate, no drooling, no hoarseness, no trismus, uvula midline. NECK: Supple. No lymphadenopathy CHEST: Clear to auscultation, breath sounds equal. No wheezing, rhonchi, rales, or stridor. No respiratory distress, speaks in full sentences. HEART: Regular rate and rhythm. No murmur heard. SKIN: Warm, dry, no rash. NEURO: Alert and oriented x3. PSYCH: Normal mood and affect Course Course Emergency Course: Patient is aware of diagnosis, understands and agrees to treatment plan. Anticipatory guidance given. Patient agrees to follow-up as directed and is aware of reasons to seek care at the emergency department. Portions of this record may have been created with voice recognition software Level of Care: Express Care Visit Vital Signs Vital signs: Reviewed. MDM - URI/Sore Throat MDM Narrative Medical decision making narrative: Differential diagnosis considered: Garibay virus, strep pharyngitis, allergic rhinitis, upper respiratory tract infection, sinusitis, rhinosinusitis, nasopharyngitis. viral pharyngitis, otitis media, otitis externa, pneumonia, bronchitis, viral cough syndrome, viral syndrome, and influenza. Exam findings show no acute concerns or changes; patient is non-toxic appearing and is in no d
--- NOTE | 2022-10-25 18:43 | ED.URI ---
HPI - URI/Sore Throat General Chief Complaint: Upper Respiratory Infection Stated Complaint: Chest tightness Time Seen by Provider: 10/25/22 18:24 Source: patient and RN notes reviewed Mode of arrival: ambulatory Limitations: no limitations Related Data Allergies Allergy/AdvReac Type Severity Reaction Status Date / Time No Known Allergies Allergy Verified 10/25/22 18:23 [facility] Past Medical History Medical History (normal spontaneous vaginal delivery) Surgical History Surgical History H/O removal of cyst LEFT UPPER EYELID Family History Family History Father Well adult Mother Well adult Sibling Well adult Sibling Well adult Social History Social History Social History: Single. 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 Alcohol intake: never Substance use: never Gender identity (if verbalized by the patient): Female Spiritual care concerns: No Course Vital Signs Vital signs: Vital Signs Temperature 98.7 F 10/25/22 18:22 Pulse Rate 94 10/25/22 18:22 Respiratory Rate 16 10/25/22 18:22 Blood Pressure 113/68 10/25/22 18:22 Pulse Oximetry 99 10/25/22 18:22 Oxygen Delivery Room Air 10/25/22 18:22 Temperature 98.7 F 10/25/22 18:22 Pulse Rate 94 10/25/22 18:22 Respiratory Rate 16 10/25/22 18:22 Blood Pressure 113/68 10/25/22 18:22 Pulse Oximetry 99 10/25/22 18:22 Oxygen Delivery Room Air 10/25/22 18:22 Discharge Plan Discharge Clinical Impression: Influenza-like illness Patient Disposition: Home, Self-Care Condition: Stable Instructions: Viral Syndrome (ED) Additional Instructions: Your rapid COVID and flu tests are negative Your rapid influenza and COVID are negative Your rapid strep swab was negative today at [facility]. A throat culture will be sent to the laboratory for further testing. If the test is positive, you will receive a phone call within 48 hours and an appropriate antibiotic will be initiated at that time. Your symptoms are likely due to a viral illness, which is not treated with antibiotics. Viral symptoms can be present for up to a few weeks. -Alternate Tylenol and Motrin per package directions for fever or pain. -Antihistamine medication such as Benadryl at night and Zyrtec during the day can help improve symptoms. -Eat and drink things that are easy to swallow, like tea or soup, or popsicles to suck on. -Oral rinses such as: Salt water gargles and/or may use topical anesthetic (eg. Chloraseptic spray) or lozenges to relieve dryness or throat pain). -Frequent hand washing or hand head orthopedic team physician is one of the best ways to prevent spread of infection. -Follow up with primary care provider in 2-3 days if condition is not improving; or seek ER visit if you have trouble breathing, cannot drink enough fluids, have muffled voice, difficulty opening your mouth, or severe swelling. Prescriptions: New cetirizine-pseudoephedrine [Zyrtec-D] 5-120 mg tablet extended release 12 hr 1 tablet PO Q12H PRN (Reason: nasal congestion) Qty: 12 0RF dextromethorphan-guaifenesin [Mucinex DM] 60-1,200 mg tablet extended release 12 hr 1 tablet PO Q12H Qty: 12 0RF Follow-up/Referrals: UNKNOWN,DOCTOR [Primary Care Provider] - Stand Alone Forms: Work/School Release IP Time of Disposition: 19:00
== END 2022-10-25 19:06 | disposition home or self-care (01) ==
PROVIDERS: Emergency Provider Nurse Practitioner
DX: J11.1 Influenza due to unidentified influenza virus with other respiratory manifestations (principal); Z20.822 Contact with and (suspected) exposure to COVID-19
CPT/HCPCS: 87081; 87426; 87804; 87880; 99213; C9803; G0463

== ENCOUNTER 2023-05-04 17:42 | Emergency (ER) | payer BC, SELFPAY ==
[2023-05-04 18:33] VITALS: BP 148/81; PULSE 103; RESP 18; TEMP 36.2; O2SAT 100
[2023-05-04 19:03] LABS: Basophils Percent Auto 0.1 % (0.2-1.2); Eosinophils Absolute Auto 0.1 K/mm3 (0-0.3); Hematocrit 37.7 % (37.0-47.0); Hemoglobin 12.2 g/dL (12.0-15.0); Immature Granulocyte Absolute 0.02 K/mm3 (0.00-0.031); Immature Granulocyte Percent A 0.3 % (0-0.5); Lymphocytes Absolute Auto 2.61 K/mm3 (0.9-3.2); Lymphocytes Percent Auto 37.4 % (18.3-44.2); Mean Corpuscular HGB Conc 32.4 g/dl (32-36); Mean Corpuscular Hemoglobin 26.5 pg (26-34); Monocytes Absolute Auto 0.6 K/mm3 (0.1-0.6); Monocytes Percent Auto 8.7 % (2.6-8.5); Neutrophils Absolute Auto 3.7 K/mm3 (1.3-6.7); Neutrophils Percent Auto 52.5 % (45.5-73.1); Platelet Count Result 261 k/mm3 (150-375)
[2023-05-04 19:10] LABS: Appearance Urine Clear (Clear); Bacteria Urine None Seen /hpf; Bilirubin Urine Negative (Negative); Blood Urine 3+ (Negative); Color Urine Yellow (Yellow); Glucose Urine UA Negative (Negative); Ketones Urine Negative (Negative); Leukocyte Esterase Ur Trace LEU/UL (Negative); Nitrate Urine Negative (Negative); Non Pathogenic Casts 0-2; Protein Urine Trace mg/dL (Negative); RBC Urine 51-100 /hpf (0-2); Specific Grav Ur 1.016 (1.001-1.035); Squamous Epithelial Cell Urine None seen /hpf (Few)
[2023-05-04 19:14] LABS: Add Urine Microscopic? YES
[2023-05-04 19:15] LABS: Alanine Aminotransferase 29 U/L (6-35); Albumin Level 3.9 g/dL (3.5-5.1); Alkaline Phosphatase 87 U/L (38-126); Anion Gap 3 mmol/L (8-16); Aspartate Amino Transferase 30 U/L (14-36); Bilirubin,Total 0.2 mg/dL (0.2-1.3); Blood Urea Nitrogen 10 mg/dL (7-17); Calcium 8.7 mg/dL (8.4-10.2); Carbon Dioxide 28 mmol/L (22-30); Chloride 106 mmol/L (98-107); Estimated CRCL calculation 145 ml/min; Estimated Glomerular Filt Rate > 60; Glucose 109 mg/dL (65-110); Potassium 3.9 mmol/L (3.4-5.0); Sodium 137 mmol/L (137-145)
[2023-05-04] MEDS: KETOROLAC 30 MG/ML VIAL (*BKC) IM (20:14)
--- NOTE | 2023-05-04 20:39 | ED.GENADULT ---
HPI - General Adult General Chief complaint: Vaginal Bleeding Stated complaint: vaginal bleeding Time Seen by Provider: 05/04/23 19:54 History of Present Illness HPI narrative: Patient is a 27-year-old female who presents emergency department with chief complaint of vaginal bleeding. The patient reports that she has been bleeding for some time and reports she saw her COOKER CLEANER today and that ordered blood work are the patient reports the test are not back yet and reports that she felt little lightheaded and decided to come to the emergency department for evaluation. The patient states he is unsure if she is or not patient reports that she is not on any oral contraceptives. Patient reports that she had a vaginal exam in the office today Related Data Allergies Allergy/AdvReac Type Severity Reaction Status Date / Time No Known Allergies Allergy Verified 10/25/22 18:23 Review of Systems Review of Systems: A 10 system review of systems was completed on the patient and is negative except for what is stated in the HPI. Nursing and ancillary documentation was reviewed. [facility] Past Medical History Medical History (normal spontaneous vaginal delivery) Surgical History Surgical History H/O removal of cyst LEFT UPPER EYELID Family History Family History Father Well adult Mother Well adult Sibling Well adult Sibling Well adult Social History Social History Social History: Single. 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 Alcohol intake: never Substance use: never Gender identity (if verbalized by the patient): Female Spiritual care concerns: No Exam Narrative: GENERAL: Well-appearing, well-nourished, and in no acute distress. HEAD: Normocephalic, atraumatic. EYES: PERRLA and EOMI. ENT: Nares clear, no rhinorrhea or epistaxis. Mucous membranes moist. NECK: Supple. CHEST: Clear to auscultation. No respiratory distress. HEART: Regular rate and rhythm. No murmur heard. Normal peripheral pulses. ABDOMEN: Soft, nontender, nondistended, normal active bowel sounds. EXTREMITIES: Normal range of motion. No edema. SKIN: Warm, dry, no rash. NEURO: No focal deficits. Alert and oriented x3. PSYCH: Normal mood and affect. Course Vital Signs Vital signs: Vital Signs Temperature 36.2 C L 05/04/23 18:33 Pulse Rate 103 H 05/04/23 18:33 Respiratory Rate 18 05/04/23 18:33 Blood Pressure 148/81 H 05/04/23 18:33 Pulse Oximetry 100 05/04/23 18:33 Oxygen Delivery Room Air 05/04/23 18:33 Temperature 36.2 C L 05/04/23 18:33 Pulse Rate 103 H 05/04/23 18:33 Respiratory Rate 18 05/04/23 18:33 Blood Pressure 148/81 H 05/04/23 18:33 Pulse Oximetry 100 05/04/23 18:33 Oxygen Delivery Room Air 05/04/23 18:33 Medical Decision Making MDM Narrative Medical decision making narrative: Differential diagnosis includes threatened miscarriage, miscarriage, incomplete , dysfunctional uterine bleeding, menorrhagia Laboratory studies were obtained on the patient which showed a CBC with a white count of 7.0 hemoglobin was 12.2. Prior laboratory studies were obtained on the patient that showed a prior hemoglobin of 13.0 this was and 2020. Electrolytes were obtained which were within normal urinalysis showed 3+ blood trace leukocyte esterase 6-10 white blood cells Urine test was negative. The patient is currently stable and vital signs with a significantly unchanged hemoglobin. Vital Signs Vital Signs: Vital Signs Temperature 36.2 C L 05/04/23 18:33 Pulse Rate 103 H 05/04/23 18:33 Respiratory Rate 18 05/04/23 18:33 Blood Pressure 148/81 H 05/04/23 18
[2023-05-04 21:02] VITALS: BP 117/68; PULSE 77; RESP 16; O2SAT 99
== END 2023-05-04 21:03 | disposition home or self-care (01) ==
PROVIDERS: Emergency Medicine; Emergency Provider Emergency Medicine
DX: N93.8 Other specified abnormal uterine and vaginal bleeding (principal)
CPT/HCPCS: 36415; 80053; 81001; 81025; 85025; 87086; 87088; 96372; 99283; J1885

== ENCOUNTER 2023-06-04 11:43 | Emergency (ER) | payer BC, SELFPAY ==
--- NOTE | ~2023-06-04 | US_ITS ---
EXAMINATION: US OB <=14 wk fetus w TV DATE: 06/04/2023 13:02 INDICATION: Vaginal bleeding, concern for rectal. TECHNIQUE: Real-time pelvic transabdominal and transvaginal ultrasound was performed. COMPARISON: None. FINDINGS: The uterus measures 8.2 x 5.4 x 5.9 cm. No intrauterine gestational sac is seen. The right ovary measures 3.1 x 2.3 x 1.7 cm. The left ovary measures 2.3 x 1.2 x 1.3 cm. There is normal vascul ar flow in the ovaries. The endometrial thickness measures 19 mm. There is no free fluid in the pelvi s. IMPRESSION: 1. Thickened endometrium with of unknown location. Although no intrauterine gestational sac is seen, this may be due to early gestation. If the patient is clinically stable, recommend followup with serial beta-hCG and ultrasound. Reviewed, dictated and finalized at location B. IMPRESSION: 1. Thickened endometrium with of unknown location. Although no intrau terine gestational sac is seen, this may be due to early gestation. If the connie ent is clinically stable, recommend followup with serial beta-hCG and ultrasoun d.
[2023-06-04 11:44] VITALS: BP 139/84; PULSE 122; RESP 18; TEMP 37; O2SAT 100
[2023-06-04 12:06] LABS: Basophils Percent Auto 0.1 % (0.2-1.2); Eosinophils Percent Auto 0.1 % (0-4.4); Hematocrit 39.3 % (37.0-47.0); Hemoglobin 13.1 g/dL (12.0-15.0); Immature Granulocyte Absolute 0.02 K/mm3 (0.00-0.031); Immature Granulocyte Percent A 0.2 % (0-0.5); Lymphocytes Absolute Auto 2.06 K/mm3 (0.9-3.2); Lymphocytes Percent Auto 25.2 % (18.3-44.2); Mean Corpuscular HGB Conc 33.3 g/dl (32-36); Mean Corpuscular Hemoglobin 26.6 pg (26-34); Mean Corpuscular Volume 79.7 fl (80-100); Mean Platelet Volume 10.1 fl (7.4-10.4); Monocytes Absolute Auto 0.6 K/mm3 (0.1-0.6); Monocytes Percent Auto 6.8 % (2.6-8.5); Neutrophils Absolute Auto 5.5 K/mm3 (1.3-6.7); Neutrophils Percent Auto 67.6 % (45.5-73.1); Platelet Count Result 268 k/mm3 (150-375); Red Blood Count 4.93 M/mm3 (4.2-5.4); Red Cell Distribution Width 13.2 % (11.5-14.5); White Blood Count 8.2 K/mm3 (4.5-10.0)
[2023-06-04 12:08] LABS: Anion Gap 8 mmol/L (8-16); Bilirubin,Total 0.4 mg/dL (0.2-1.3); Blood Urea Nitrogen 7 mg/dL (7-17); Calcium 9.5 mg/dL (8.4-10.2); Carbon Dioxide 23 mmol/L (22-30); Chloride 104 mmol/L (98-107); Estimated CRCL calculation 128 ml/min; Estimated Glomerular Filt Rate > 60; Glucose 101 mg/dL (65-110); Potassium 3.7 mmol/L (3.4-5.0); Sodium 135 mmol/L (137-145)
[2023-06-04 12:09] LABS: Alanine Aminotransferase 41 U/L (6-35); Albumin Level 4.3 g/dL (3.5-5.1); Alkaline Phosphatase 104 U/L (38-126); Aspartate Amino Transferase 34 U/L (14-36); Lipase 101 U/L (23-300)
--- NOTE | 2023-06-04 12:14 | ED.ABDPAIN ---
HPI - Abdominal Pain General Chief Complaint: Abdominal Pain Stated Complaint: abdominal pain Time Seen by Provider: 06/04/23 11:57 History of Present Illness HPI narrative: 27-year-old female presented the emergency department for evaluation of 3 weeks of abdominal pain. Patient describes symptoms pain throughout her entire abdomen. Patient states that she does have some mild burning with urination but denies any associated nausea vomiting diarrhea vaginal bleeding vaginal discharge. Upon arrival patient did not know if she was or not. Patient states that she did have her period on April 18 and then had subsequent 3 weeks of vaginal bleeding. Patient did have follow-up with PATIENT CONSUMER MARKETER for that. Related Data Allergies Allergy/AdvReac Type Severity Reaction Status Date / Time No Known Allergies Allergy Verified 10/25/22 18:23 Review of Systems Review of Systems: All systems reviewed & are unremarkable except as noted in HPI and below PMFSH Past Medical History Medical History (normal spontaneous vaginal delivery) Surgical History Surgical History H/O removal of cyst LEFT UPPER EYELID Family History Family History Father Well adult Mother Well adult Sibling Well adult Sibling Well adult Social History Social History Social History: Single. 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 HEAD: normocephalic, atraumatic. EYES: PERRLA/EOMI, conjunctivae clear. NOSE: Normal no drainage NECK: Supple. No adenopathy, no masses. RESPIRATORY: Airway patent, respirations nonlabored. Clear to auscultation bilaterally, no rales, rhonchi, wheezing. CARDIOVASCULAR: Regular rate and rhythm without murmurs rubs or gallops. ABDOMINAL: Soft, normal bowel sounds, suprapubic abdominal tenderness MUSCULOSKELETAL: Moves all extremities. Strength/ROM intact, No edema, No calf tenderness. NEURO: Alert. Cranial nerves II through XII intact. Good gait. Good coordination SKIN: Warm, dry. Normal Color Course Course Emergency Course: 27-year-old female presented ED for evaluation of abdominal pain. Patient is afebrile with no leukocytosis no significant abnormalities on her CMP. Patient's urine test was positive. Ultrasound is being ordered to evaluate for torsion and ectopic. Ultrasound did not show an intrauterine . I discussed the case with Dr. Brar who is on for the patient's PATIENT CONSUMER MARKETER Dr. Mcginnis. Patient will be instructed to call for follow-up on Wednesday with anticipated follow-up on Wednesday. Patient was updated on the results of the test, the ultrasound and on the plan for follow-up. Patient was also educated on reasons to return to the emergency department. Patient did feel improved with treatment. All questions concerns were addressed. Vital Signs Vital signs: Vital Signs Temperature 98.6 F 06/04/23 11:44 Pulse Rate 122 H 06/04/23 11:44 Respiratory Rate 18 06/04/23 11:44 Blood Pressure 139/84 06/04/23 11:44 Pulse Oximetry 100 06/04/23 11:44 Temperature 98.6 F 06/04/23 11:44 Pulse Rate 98 06/04/23 14:38 Respiratory Rate 18 06/04/23 14:38 Blood Pressure 128/82 06/04/23 14:38 Pulse Oximetry 100 06/04/23 14:38 MDM - Abdominal Pain Differential Diagnosis Differential diagnosis: Likely abdominal pain, acute appendicitis and endometriosis Lab Data Attestation: I reviewed the patient's lab results. 06/04/23 11:53 06/04/23 11
[2023-06-04 12:27] LABS: Appearance Urine Clear (Clear); Bacteria Urine Rare /hpf; Bilirubin Urine Negative (Negative); Blood Urine Negative (Negative); Color Urine Yellow (Yellow); Glucose Urine UA Negative (Negative); Ketones Urine Negative (Negative); Leukocyte Esterase Ur Trace LEU/UL (Negative); Nitrate Urine Negative (Negative); Non Pathogenic Casts 0-2; Protein Urine Negative (Negative); RBC Urine 0-2 /hpf (0-2); Specific Grav Ur 1.014 (1.001-1.035); Squamous Epithelial Cell Urine Moderate /hpf (Few)
[2023-06-04 13:02] LABS: Add Urine Microscopic? YES
[2023-06-04] MEDS: SODIUM CHLORIDE 0.9% IV 1,000 ML 999 ML IV CONT (13:05)
[2023-06-04 14:38] VITALS: BP 128/82; PULSE 98; RESP 18; O2SAT 100
== END 2023-06-04 14:39 | disposition home or self-care (01) ==
PROVIDERS: Emergency Medicine; Emergency Provider Emergency Medicine
DX: O36.80X0 Pregnancy with inconclusive fetal viability, not applicable or unspecified (principal); Z3A.00 Weeks of gestation of pregnancy not specified
CPT/HCPCS: 36415; 76801; 76817; 80053; 81001; 81025; 83690; 84702; 85025; 87086; 96360; 99284; J7030

== ENCOUNTER 2023-06-09 23:15 | Emergency (ER) | payer BC, SELFPAY ==
--- NOTE | ~2023-06-09 | US_ITS ---
Pelvic ultrasound. Clinical History: First trimester , evaluate for ectopic Technique: Realtime transabdominal and transvaginal scanning of the pelvis was performed. Color flow Doppler and Doppler spectral analysis were performed. Findings: The uterus is anteverted. There is an early intrauterine gestational sac, with estimated ge stational age of 5 weeks 3 days based on average sac diameter 7 mm. Yolk sac is present, without defi nite visible pole.. The right ovary measures 3.0 x 2.3 x 2.1 cm. No significant right ovarian or adnexal mass is seen. The left ovary measures 2.8 x 1.4 x 2.0 cm. No significant left ovarian or adnexal mass is seen. There is no evidence of free fluid in the cul de sac. Impression: Intrauterine gestational sac with estimated gestational age of 5 weeks 3 days by average sac diameter . Yolk sac present without visible pole. This could reflect an early normal . Continue d follow-up with serial beta hCG, and repeat ultrasound as warranted, is advised. Reviewed, dictated and finalized at location M. Impression: Intrauterine gestational sac with estimated gestational age of 5 weeks 3 days b y average sac diameter. Yolk sac present without visible pole. This could reflect an early normal . Continued follow-up with serial beta hCG, a nd repeat ultrasound as warranted, is advised.
[2023-06-09 23:22] VITALS: BP 137/72; PULSE 106; RESP 18; TEMP 36.6; O2SAT 100
[2023-06-09 23:53] VITALS: O2SAT 100
[2023-06-10] VITALS (7 sets, daily range): BP systolic 122–128; BP diastolic 80–84; PULSE 86–90; RESP 15–16; O2SAT 99–100
--- NOTE | 2023-06-10 00:02 | ED.ABDPAIN ---
HPI - Abdominal Pain General Chief Complaint: Abdominal Pain <Sima Mathew PA-C - Last Filed: 06/10/23 02:59> Stated Complaint: abd pain. ?? <Sima Mathew PA-C - Last Filed: 06/10/23 02:59> Time Seen by Provider: 06/09/23 23:47 <Sima Mathew PA-C - Last Filed: 06/10/23 02:59> History of Present Illness HPI narrative: 27-year-old female, G3, P2, LMP 04/18 reports for evaluation for lower abdominal pain x5 hours. Patient states she has been seen in the emergency department multiple times for abdominal pain within the past few weeks and has been following with INDUSTRIAL LOCOMOTIVE OPERATOR. She was last seen here on 06/04 with a positive test, ultrasound showed a thickened endometrium with of unknown location, no intrauterine gestational sac is seen which may be due to early gestation. Patient was discharged and advised to follow-up with Dr. Mcginnis, however she has not followed up with Dr. Mcginnis because something came up . She has not had repeat quant checked. She reports intermittent nausea, vomiting 2 days ago but none since. Last bowel movement today was normal. Denies history of abdominal surgeries. No dysuria or hematuria, no vaginal discharge or bleeding, no concern for STDs. Denies fever, CP, SOB. <Sima Mathew PA-C - Last Filed: 06/10/23 02:59> Related Data Allergies/Adverse Reactions: Allergies Allergy/AdvReac Type Severity Reaction Status Date / Time No Known Allergies Allergy Verified 06/09/23 23:21 <Sima Mathew PA-C - Last Filed: 06/10/23 02:59> Review of Systems Review of Systems: CONSTITUTIONAL: Denies fever, chills EYES: Denies visual changes, redness, or discharge. ENT: Denies rhinorrhea, congestion, sore throat, or otalgia. CARDIOVASCULAR: Denies chest pain, palpitations, or edema. RESPIRATORY: Denies cough or dyspnea. GASTROINTESTINAL: See HPI GENITOURINARY: Denies dysuria or hematuria. SKIN: Denies rash or itching. MUSCULOSKELETAL: Denies back pain, joint pain, or myalgia. NEUROLOGIC: Denies headache, numbness, dizziness, or weakness. PSYCHIATRIC: Denies anxiety or depression. <Sima Mathew PA-C - Last Filed: 06/10/23 02:59> [facility] Past Medical History Medical History: Medical History (normal spontaneous vaginal delivery) <Sima Mathew PA-C - Last Filed: 06/10/23 02:59> Surgical History Surgical History: Surgical History H/O removal of cyst LEFT UPPER EYELID <Sima Mathew PA-C - Last Filed: 06/10/23 02:59> Family History Family History: Family History Father Well adult Mother Well adult Sibling Well adult Sibling Well adult <Sima Mathew PA-C - Last Filed: 06/10/23 02:59> Social History Social History: Social History Social History: Single. 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 Patient resting abdomen exam bed. She is pleasant and conversational. HEAD: Normocephalic EYES: PERRLA ENT: Nares clear. Mucous membranes moist. Oropharynx without tonsillar hypertrophy exudate or other lesions. NECK: Supple. CHEST: No respiratory distress. Clear to auscultation, no adventitious breath sounds. HEART: Regular rate and rhythm. No murmur heard. Normal peripheral pulses. ABDOMEN: Soft, normal active bowel sounds. Mild suprapubic tenderness without guarding, rebound or rigidity. No CVA tenderness. EXTREMITIES: Normal range of motion. No edema.
[2023-06-10] MEDS: SODIUM CHLORIDE 0.9% IV 1,000 ML 999 ML IV CONT (00:18)
[2023-06-10 00:24] LABS: Basophils Percent Auto 0.1 % (0.2-1.2); Eosinophils Absolute Auto 0.1 K/mm3 (0-0.3); Eosinophils Percent Auto 0.4 % (0-4.4); Hematocrit 34.8 % (37.0-47.0); Hemoglobin 11.7 g/dL (12.0-15.0); Immature Granulocyte Absolute 0.02 K/mm3 (0.00-0.031); Immature Granulocyte Percent A 0.2 % (0-0.5); Lymphocytes Percent Auto 36.5 % (18.3-44.2); Mean Corpuscular HGB Conc 33.6 g/dl (32-36); Mean Corpuscular Hemoglobin 26.8 pg (26-34); Mean Corpuscular Volume 79.8 fl (80-100); Monocytes Absolute Auto 0.8 K/mm3 (0.1-0.6); Monocytes Percent Auto 6.8 % (2.6-8.5); Neutrophils Absolute Auto 6.3 K/mm3 (1.3-6.7); Platelet Count Result 224 k/mm3 (150-375); Red Blood Count 4.36 M/mm3 (4.2-5.4); Red Cell Distribution Width 13.4 % (11.5-14.5); White Blood Count 11.2 K/mm3 (4.5-10.0)
[2023-06-10 00:25] LABS: Alanine Aminotransferase 30 U/L (6-35); Albumin Level 3.7 g/dL (3.5-5.1); Alkaline Phosphatase 85 U/L (38-126); Anion Gap 5 mmol/L (8-16); Aspartate Amino Transferase 28 U/L (14-36); Bilirubin,Total 0.2 mg/dL (0.2-1.3); Blood Urea Nitrogen 11 mg/dL (7-17); Carbon Dioxide 24 mmol/L (22-30); Chloride 106 mmol/L (98-107); Estimated CRCL calculation 128 ml/min; Estimated Glomerular Filt Rate > 60; Glucose 96 mg/dL (65-110); Lipase 142 U/L (23-300); Potassium 3.3 mmol/L (3.4-5.0); Sodium 135 mmol/L (137-145)
[2023-06-10 00:30] LABS: Appearance Urine Cloudy (Clear); Bacteria Urine Rare /hpf; Bilirubin Urine Negative (Negative); Blood Urine Negative (Negative); Color Urine Yellow (Yellow); Glucose Urine UA Negative (Negative); Ketones Urine Negative (Negative); Leukocyte Esterase Ur Negative LEU/UL (Negative); Nitrate Urine Negative (Negative); Non Pathogenic Casts 0-2; Protein Urine Negative (Negative); RBC Urine 0-2 /hpf (0-2); Specific Grav Ur 1.017 (1.001-1.035); Squamous Epithelial Cell Urine Moderate /hpf (Few); WBC Urine 0-5 /hpf; pH Urine 6.5 (5.0-9.0)
[2023-06-10 00:31] LABS: Add Urine Microscopic? YES
[2023-06-10] MEDS: POTASSIUM CHLORIDE 20 MEQ PACKET (FOR LIQUID) PO (00:51)
[2023-06-10 01:12] LABS: Prothrombin Time 14.1 Seconds (11.1-14.7)
[2023-06-10 01:13] LABS: Partial Thromboplastin Time 26.4 SECONDS (22.3-36.8)
== END 2023-06-10 04:28 | disposition home or self-care (01) ==
PROVIDERS: Physician Assistant; Emergency Provider Emergency Medicine
DX: O26.891 Other specified pregnancy related conditions, first trimester (principal); R10.30 Lower abdominal pain, unspecified; Z3A.01 Less than 8 weeks gestation of pregnancy
CPT/HCPCS: 36415; 76801; 76817; 80053; 81001; 81025; 83690; 84702; 85025; 85461; 85610; 85730; 86850; 86900; 86901; 96360; 96361; 99284; A9270; J7030

== ENCOUNTER 2023-06-28 13:35 | Emergency (ER) | payer BC, SELFPAY ==
--- NOTE | ~2023-06-28 | US_ITS ---
EXAMINATION: US OB <=14 wk fetus w TV DATE: 06/28/2023 15:11 INDICATION: Right lower quadrant abdominal cramping. Bleeding. . TECHNIQUE: Real-time transabdominal and transvaginal pelvic ultrasound was performed. COMPARISON: Ultrasound 06/10/2023, 06/04/2023 FINDINGS: TRANSABDOMINAL ULTRASOUND: The uterus measures 7.9 x 6.0 x 6.4 cm. TRANSVAGINAL ULTRASOUND: There is an intrauterine gestational sac. A yolk sac is identified. The fet al crown rump length measures 1.5 cm, which correlates with an estimated gestational age of 7 weeks a nd 6 day(s) (+/-) 5 day(s). heart motion is identified measuring 151 beats per minute (bpm) by M-mode Doppler. There is a subchorionic hematoma measuring 2.8 x 1.5 x 2.4 cm. The right ovary measur es 2.6 x 2.6 x 2.1 cm. The left ovary is not visualized. There is no free fluid in the pelvis. IMPRESSION: 1. Single living intrauterine gestation with estimated date of delivery of 02/08/2024. 2. Moderate-sized subchorionic hematoma. Reviewed, dictated and finalized at location A. IMPRESSION: 1. Single living intrauterine gestation with estimated date of delivery of 01/20. 2. Moderate-sized subchorionic hematoma.
[2023-06-28 13:42] VITALS: BP 140/66; PULSE 108; RESP 20; TEMP 36.7; O2SAT 100
[2023-06-28 14:22] LABS: Basophils Percent Auto 0.1 % (0.2-1.2); Eosinophils Percent Auto 0.1 % (0-4.4); Hematocrit 36.9 % (37.0-47.0); Hemoglobin 12.5 g/dL (12.0-15.0); Immature Granulocyte Absolute 0.03 K/mm3 (0.00-0.031); Immature Granulocyte Percent A 0.3 % (0-0.5); Lymphocytes Absolute Auto 2.18 K/mm3 (0.9-3.2); Lymphocytes Percent Auto 24.1 % (18.3-44.2); Mean Corpuscular HGB Conc 33.9 g/dl (32-36); Mean Corpuscular Hemoglobin 27.3 pg (26-34); Mean Corpuscular Volume 80.6 fl (80-100); Mean Platelet Volume 9.6 fl (7.4-10.4); Monocytes Absolute Auto 0.6 K/mm3 (0.1-0.6); Monocytes Percent Auto 6.4 % (2.6-8.5); Neutrophils Absolute Auto 6.2 K/mm3 (1.3-6.7); Platelet Count Result 257 k/mm3 (150-375); Red Blood Count 4.58 M/mm3 (4.2-5.4); Red Cell Distribution Width 13.3 % (11.5-14.5); White Blood Count 9.1 K/mm3 (4.5-10.0)
[2023-06-28 14:23] LABS: Appearance Urine Clear (Clear); Bilirubin Urine Negative (Negative); Blood Urine Negative (Negative); Color Urine Yellow (Yellow); Glucose Urine UA Negative (Negative); Ketones Urine Negative (Negative); Leukocyte Esterase Ur Negative LEU/UL (Negative); Nitrate Urine Negative (Negative); Protein Urine Negative (Negative); Specific Grav Ur 1.015 (1.001-1.035)
[2023-06-28 14:29] LABS: Add Urine Microscopic? NO
[2023-06-28 14:35] LABS: Alanine Aminotransferase 21 U/L (6-35); Albumin Level 4.1 g/dL (3.5-5.1); Alkaline Phosphatase 77 U/L (38-126); Anion Gap 5 mmol/L (8-16); Aspartate Amino Transferase 20 U/L (14-36); Bilirubin,Total 0.3 mg/dL (0.2-1.3); Blood Urea Nitrogen 8 mg/dL (7-17); Calcium 9.1 mg/dL (8.4-10.2); Carbon Dioxide 25 mmol/L (22-30); Chloride 101 mmol/L (98-107); Estimated CRCL calculation 128 ml/min; Estimated Glomerular Filt Rate > 60; Glucose 103 mg/dL (65-110); Potassium 3.5 mmol/L (3.4-5.0); Sodium 131 mmol/L (137-145)
--- NOTE | 2023-06-28 15:23 | ED.PREGNANCY ---
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 Patient is G3, P2, currently around [address] gestation[address] She sees Dr[address] Mcginnis. She states this morning she developed some cramping pain throughout her lower abdomen. She then noticed a small amount of brown vaginal spotting with wiping. She contacted her THREADER OPERATOR's office and was referred to the ED for further evaluation. Patient denies any issues with nausea, vomiting, fever, urinary symptoms. Denies rectal bleeding or melena. Patient has had previous ultrasound that showed some intrauterine features, but it was early in . Related Data Allergies Allergy/AdvReac Type Severity Reaction Status Date / Time No Known Allergies Allergy Verified 06/28/23 13:48 Review of Systems Review of Systems: CONSTITUTIONAL: Denies fever, chills, or sweats. CARDIOVASCULAR: Denies chest pain. RESPIRATORY: Denies dyspnea. GASTROINTESTINAL: See HPI. GENITOURINARY: See HPI. SKIN: Denies rash or itching. MUSCULOSKELETAL: Denies back pain, joint pain, or myalgia. All systems reviewed & are unremarkable except as noted in HPI and below PMFSH Past Medical History Medical History Abnormal liver enzymes Abnormal TSH Hyperemesis gravidarum (normal spontaneous vaginal delivery) Spinal headache Surgical History Surgical History H/O removal of cyst LEFT UPPER EYELID Family History Family History Father Well adult Mother Well adult Sibling Well adult Sibling Well adult Social History Social History Social History: Single. 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 HEAD: Normocephalic, atraumatic. NECK: Supple. No adenopathy, no masses. RESPIRATORY: Airway patent, respirations nonlabored. Clear to auscultation bilaterally, no rales, rhonchi, wheezing. CARDIOVASCULAR: Regular rate and rhythm without murmurs, rubs, or gallops. Peripheral pulses 2+ and equal bilaterally. ABDOMINAL: Soft, mild tenderness throughout lower abdomen, worst in right lower abdomen, nondistended, no hepatosplenomegaly. Normoactive BS. MUSCULOSKELETAL: Moves all extremities. Strength/ROM intact without gross deformities. SKIN: Warm, dry, normal color. No rashes. NEURO: A&O X3. Speech clear. Cranial nerves II-XII grossly intact. Steady gait. No ataxic movements. PSYCHIATRIC: Appropriate mood and affect. Normal interaction. Course Vital Signs Vital signs: Vital Signs Temperature 98.0 F 06/28/23 13:42 Pulse Rate 108 H 06/28/23 13:42 Respiratory Rate 06/28/23 13:42 Blood Pressure 140/66 06/28/23 13:42 Pulse Oximetry 100 06/28/23 13:42 Oxygen Delivery Room Air 06/28/23 13:42 Temperature 98.0 F 06/28/23 13:42 Pulse Rate 108 H 06/28/23 13:42 Respiratory Rate 06/28/23 13:42 Blood Pressure 140/66 06/28/23 13:42 Pulse Oximetry 100 06/28/23 13:42 Oxygen Delivery Room Air 06/28/23 13:42 MDM - OB/Uterine Contractions MDM Narrative Medical decision making narrative: Beta quant > 37,000. Ultrasound showing a live intrauterine , good FHT, 7 weeks 6 days. Does show moderate sized subchorionic hematoma. Likely source of patient's
== END 2023-06-28 15:49 | disposition home or self-care (01) ==
PROVIDERS: Emergency Provider Physician Assistant
DX: O41.8X10 Other specified disorders of amniotic fluid and membranes, first trimester, not applicable or unspecified (principal); O20.9 Hemorrhage in early pregnancy, unspecified; Z3A.08 8 weeks gestation of pregnancy
CPT/HCPCS: 36415; 76801; 76817; 80053; 81003; 84702; 85025; 85461; 86850; 86900; 86901; 99284

== ENCOUNTER 2024-01-16 07:56 | Emergency (ER) | payer BC, SELFPAY ==
[2024-01-16 08:50] VITALS: BP 124/82; PULSE 70; RESP 18; TEMP 36.5; O2SAT 100
--- NOTE | 2024-01-16 08:52 | ED.EYEPROB ---
HPI - Eye Problem General Chief complaint: Eye Problems Stated complaint: right eye issue Time Seen by Provider: 01/16/24 08:23 History of Present Illness HPI Narrative: 28-year-old female presenting to the emergency department for evaluation of right upper eyelid swelling. Patient states she was having some pain in the upper eyelid yesterday and then when she woke up this morning she had increased swelling of the upper eyelid. Patient denies any change in vision, patient denies any pain of the eye itself. Patient denies any tenderness around the eye but primary complaints tenderness of the upper eyelid. Patient does have a history of a stye in that eye when she was younger and patient did have surgical treatment for that. Related Data Allergies Allergy/AdvReac Type Severity Reaction Status Date / Time No Known Allergies Allergy Verified 01/16/24 08:50 Review of Systems Review of Systems: All systems reviewed & are unremarkable except as noted in HPI and below PMFSH Past Medical History Medical History Abnormal liver enzymes Abnormal TSH Hyperemesis gravidarum (normal spontaneous vaginal delivery) Spinal headache Surgical History Surgical History H/O removal of cyst LEFT UPPER EYELID Family History Family History Father Well adult Mother Well adult Sibling Well adult Sibling Well adult Social History Social History Social History: Single. 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 HEAD: normocephalic, atraumatic. EYES: PERRLA/EOMI, conjunctivae clear. Swelling of right upper eyelid, no tenderness around the. Right eyelid was inverted but due to swelling was difficult to see past the edge of the eyelid. NOSE: Normal no drainage EARS:TMS clear with good light reflex. THROAT: Pharynx clear, no exudate. NECK: Supple. No adenopathy, no masses. RESPIRATORY: Airway patent, respirations nonlabored. Clear to auscultation bilaterally, no rales, rhonchi, wheezing. SKIN: Warm, dry. Normal Color Course Course Emergency Course: 28-year-old female presenting to the emergency department for right eye swelling. Patient was treated with antibiotics for possible stye versus cellulitis. Vital Signs Vital signs: Vital Signs Temperature 97.7 F 01/16/24 08:50 Pulse Rate 70 01/16/24 08:50 Respiratory Rate 18 01/16/24 08:50 Blood Pressure 124/82 01/16/24 08:50 Pulse Oximetry 100 01/16/24 08:50 Temperature 97.7 F 01/16/24 08:50 Pulse Rate 70 01/16/24 08:50 Respiratory Rate 18 01/16/24 08:50 Blood Pressure 124/82 01/16/24 08:50 Pulse Oximetry 100 01/16/24 08:50 MDM - Eye Problem MDM Narrative Medical decision making narrative: 28-year-old female present to emergency department for evaluation of right eye swelling. Low concern for preseptal cellulitis, suspect 5-year-old, patient is being started on antibiotics. Patient will be continued on Keflex at home. Patient was encouraged to have close follow-up with Ophthalmology. All questions concerns were addressed. Patient was comfortable the plan for discharge and close follow-up Differential Diagnosis Differential diagnosis: Likely periorbital cellulitis and other (Hordeolum, chalazion, cellulitis) Discharge Plan Discharge Clinical Impression: Cellulitis of eyelid Patient Disposition: Home, Self-Care Condition: Stable Instructions: Antibiotic Form, Cellulitis (ED), Stye (ED) Additional Instructions: Anti
[2024-01-16] MEDS: CEPHALEXIN 500 MG CAPSULE PO (08:57)
== END 2024-01-16 09:09 | disposition home or self-care (01) ==
PROVIDERS: Emergency Provider Emergency Medicine
DX: H00.031 Abscess of right upper eyelid (principal)
CPT/HCPCS: 99283; A9270

== ENCOUNTER 2024-04-25 12:43 | Emergency (ER) | payer BC, SELFPAY ==
[2024-04-25 12:47] VITALS: BP 139/84; PULSE 97; RESP 15; TEMP 36.7; O2SAT 99
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
[2024-04-25] MEDS: ACETAMINOPHEN 500 MG TABLET 1000 MG PO (14:44)
[2024-04-25 15:41] VITALS: BP 130/77; PULSE 82; RESP 16; TEMP 36.7; O2SAT 100
[2024-04-25] MEDS: ERYTHROMYCIN OPHTH OINTMENT 1 GM TUBE 1 APPLIC LEFT EYE (16:30)
== END 2024-04-25 16:39 | disposition home or self-care (01) ==
PROVIDERS: Emergency Provider Student in an Organized Health Care Education/Training Program
DX: T74.11XA Adult physical abuse, confirmed, initial encounter (principal); S05.02XA Injury of conjunctiva and corneal abrasion without foreign body, left eye, initial encounter; Y04.2XXA Assault by strike against or bumped into by another person, initial encounter; Y07.030 Male partner, current, perpetrator of maltreatment and neglect
CPT/HCPCS: 99283; A9270

== ENCOUNTER 2024-05-01 11:33 | Emergency (ER) | payer BC, SELFPAY ==
[2024-05-01 11:34] VITALS: BP 122/77; PULSE 100; RESP 20; TEMP 37; O2SAT 98
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
== END 2024-05-01 12:48 | disposition home or self-care (01) ==
PROVIDERS: Emergency Provider Nurse Practitioner Family
DX: H57.12 Ocular pain, left eye (principal); H53.71 Glare sensitivity
CPT/HCPCS: 99282

== ENCOUNTER 2025-05-18 17:58 | Emergency (ER) | payer OTHER, SELFPAY ==
--- NOTE | ~2025-05-18 | XR_ITS ---
CHEST RADIOGRAPH, PA AND LATERAL CLINICAL HISTORY: chest pain . COMPARISON: None available TECHNIQUE: PA and lateral views of the chest. FINDINGS The cardiomediastinal silhouette is unremarkable. The lungs are clear. IMPRESSION: No focal infiltrate or effusion. Reviewed, dictated and finalized at location A.
--- NOTE | 2025-05-18 17:59 | ECG_ITS ---
Test Date: 2025-05-18 18:18:56 Measurements Intervals Valders Rate: 100 P: 62 MD: 147 QRS: 68 QRSD: 84 T: 42 QT: 345 QTc: 445 Interpretive Statements SINUS TACHYCARDIA BASELINE ARTIFACT- I, II, III, AVR, AVL, AVF, V1 BORDERLINE ECG No previous ECG available for comparison Electronically Signed On 05-18-2025 19:09:05 CDT by Filemon Alva D.O.
[2025-05-18 18:14] VITALS: BP 141/78; PULSE 100; RESP 16; TEMP 36.4; O2SAT 99
--- NOTE | 2025-05-18 18:36 | ECG_ITS ---
Test Date: 2025-05-18 18:46:10 Measurements Intervals Oral Rate: 95 P: 61 NV: 161 QRS: 68 QRSD: 91 T: 39 QT: 362 QTc: 456 Interpretive Statements SINUS RHYTHM BASELINE ARTIFACT- I, III, AVL NORMAL ECG Compared to ECG 05/18/2025 18:18:56 NO SIGNIFICANT CHANGE Electronically Signed On 05-18-2025 19:10:12 CDT by Filemon Alva D.O.
[2025-05-18 18:40] LABS: Basophils Percent Auto 0.2 % (0.2-1.2); Eosinophils Absolute Auto 0.1 K/mm3 (0-0.3); Eosinophils Percent Auto 0.7 % (0-4.4); Hematocrit 38.3 % (37.0-47.0); Hemoglobin 12.9 g/dL (12.0-15.0); Immature Granulocyte Absolute 0.02 K/mm3 (0.00-0.031); Immature Granulocyte Percent A 0.2 % (0-0.5); Lymphocytes Absolute Auto 3.33 K/mm3 (0.9-3.2); Lymphocytes Percent Auto 34.6 % (18.3-44.2); Mean Corpuscular HGB Conc 33.7 g/dl (32-36); Mean Corpuscular Hemoglobin 27.9 pg (26-34); Mean Corpuscular Volume 82.9 fl (80-100); Mean Platelet Volume 9.8 fl (7.4-10.4); Monocytes Absolute Auto 0.6 K/mm3 (0.1-0.6); Monocytes Percent Auto 6.7 % (2.6-8.5); Neutrophils Absolute Auto 5.5 K/mm3 (1.3-6.7); Neutrophils Percent Auto 57.6 % (45.5-73.1); Platelet Count Result 259 k/mm3 (150-375); Red Blood Count 4.62 M/mm3 (4.2-5.4); Red Cell Distribution Width 12.5 % (11.5-14.5); White Blood Count 9.6 K/mm3 (4.5-10.0)
[2025-05-18 18:50] LABS: Alanine Aminotransferase 20 U/L (6-35); Albumin Level 4.4 g/dL (3.5-5.1); Alkaline Phosphatase 71 U/L (38-126); Anion Gap 10 mmol/L (4-12); Aspartate Amino Transferase 26 U/L (14-36); Bilirubin,Total 0.3 mg/dL (0.2-1.3); Blood Urea Nitrogen 9 mg/dL (7-17); Calcium 9.3 mg/dL (8.4-10.2); Carbon Dioxide 24 mmol/L (22-30); Chloride 103 mmol/L (98-107); Estimated CRCL calculation 118 ml/min; Estimated Glomerular Filt Rate > 60; Glucose 115 mg/dL (65-110); Lipase 98 U/L (23-300); Potassium 3.4 mmol/L (3.4-5.0); Sodium 137 mmol/L (137-145); Total Protein 7.7 g/dL (6.3-8.2)
[2025-05-18 18:56] LABS: Partial Thromboplastin Time 22.4 Seconds (22.3-36.8); Prothrombin Time 12.9 Seconds (11.1-14.7)
[2025-05-18 19:02] LABS: Troponin I < 0.012 ng/mL (0.000-0.034)
--- NOTE | 2025-05-18 22:57 | ED_ITS ---
HPI - General Adult General Chief complaint: Chest Pain Stated complaint: chest pain Time Seen by Provider: 05/18/25 21:39 History of Present Illness HPI narrative: 21-year-old female presented to the emergency department for evaluation for substernal chest pain. Patient reports he did have a respiratory infection last week with symptoms of cough and congestion. Patient began having the chest pain earlier today. Patient states pain is worsened with deep inspiration. Patient denies any prior cardiac history. Patient denies any radiation of the pain to her neck back or arms. Patient also states she was diagnosed with a hyperthyroid but due to not having medical insurance she has not had follow-up with a physician. Patient states she does have medical insurance again. Related Data Allergies Allergy/AdvReac Type Severity Reaction Status Date / Time No Known Allergies Allergy Verified 05/18/25 18:16 Review of Systems 2 Review of Systems: All systems reviewed & are unremarkable except as noted in HPI and below PMFSH Past Medical History Medical History Abnormal liver enzymes Abnormal TSH Hyperemesis gravidarum (normal spontaneous vaginal delivery) Spinal headache Surgical History Surgical History H/O removal of cyst LEFT UPPER EYELID Family History Family History Father Well adult Mother Well adult Sibling Well adult Sibling Well adult Social History Social History Social History: Single. 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 HEAD: normocephalic, atraumatic. EYES: PERRLA/EOMI, conjunctivae clear. NOSE: Normal no drainage EARS:TMS clear with good light reflex. THROAT: Pharynx clear, no exudate. NECK: Supple. No adenopathy, no masses. RESPIRATORY: Airway patent, respirations nonlabored. Clear to auscultation bilaterally, no rales, rhonchi, wheezing. CARDIOVASCULAR: Regular rate and rhythm without murmurs rubs or gallops. ABDOMINAL: Soft, nontender, nondistended, normal bowel sounds MUSCULOSKELETAL: Moves all extremities. Strength/ROM intact, No edema, No calf tenderness. NEURO: Alert. Cranial nerves II through XII intact. Good gait. Good coordination SKIN: Warm, dry. Normal Color Course Vital Signs Vital signs: Vital Signs Temperature 97.6 F 05/18/25 18:14 Pulse Rate 100 05/18/25 18:14 Respiratory Rate 16 05/18/25 18:14 Blood Pressure 141/78 H 05/18/25 18:14 Pulse Oximetry 99 05/18/25 18:14 Oxygen Delivery Room Air 05/18/25 18:14 Temperature 97.6 F 05/18/25 18:14 Pulse Rate 88 05/19/25 01:21 Respiratory Rate 16 05/19/25 01:21 Blood Pressure 117/77 05/19/25 01:21 Pulse Oximetry 96 05/19/25 01:21 Oxygen Delivery Room Air 05/18/25 18:14 Medical Decision Making [facility] Narrative Medical decision making narrative: 29-year-old female present to emergency department for evaluation for substernal chest pain that is worsened with deep inspiration. Patient did have a recent upper respiratory infection so my suspicion for pleurisy is the underlying etiology. Patient is currently afebrile with no leukocytosis hemoglobin of 12.9. Patient's INR was 1.0. No acute abnormalities on the patient's CMP and patient had a negative troponin. Patient was PERC negative. Patient did have a low TSH and elevated free T4. Patient will of follow-up with her primary care physician regarding starting levothyroxine. Patient was updated the results of her workup. Patient was comfortable the plan for discharge and close follow-up. Differential Diagnosis Differential Diagnosis: Pulmonary embolism, pneumonia, ACS, hypothyroid Vital Signs Vital Signs: Vital Signs Temperature 97.6 F 05/18/25 18:14 Pulse Rate 100 05/18/25 18:14 Respiratory Rate 16 05/18/25 18:14 Blood Pressure 141/78 H 05/18/25 18:14 Pulse Oximetry 99 05/18/25 18:14 Oxygen Delivery Room Air 05/18/25 18:14 Temperature 97.6 F 05/18/25 18:14 Pulse Rate 88 05/19/25 01:21 Respiratory Rate 16 05/19/25 01:21 Blood Pressure 117/77 05/19/25 01:21 Pulse Oximetry 96 05/19/25 01:21 Oxygen Delivery Room Air 05/18/25 18:14 Lab Data Lab results reviewed: Yes I reviewed the patient's lab results. 05/18/25 18:28 05/18/25 18:28 Labs: Lab Results 05/18/25 05/18/25 05/18/25 Range/Units 17:59 18:28 23:03 WBC 9.6 (4.5-10.0) K/mm3 RBC 4.62 (4.2-5.4) M/mm3 Hgb 12.9 (12.0-15.0) g/dL Hct 38.3 (37.0-47.0) % MCV 82.9 (80-100) fl MCH 27.9 (26-34) pg MCHC 33.7 (32-36) g/dl RDW 12.5 (11.5-14.5) % Plt Count 259 (150-375) k/mm3 MPV 9.8 (7.4-10.4) fl Immature Gran % (Auto) 0.2 (0-0.5) % Neut % (Auto) 57.6 (45.5-73.1) % Lymph % (Auto) 34.6 (18.3-44.2) % Parmer % (Auto) 6.7 (2.6-8.5) % Eos % (Auto) 0.7 (0-4.4) % Baso % (Auto) 0.2 (0.2-1.2) % Lymph # (Auto) 3.33 H (0.9-3.2) K/mm3 Parmer # (Auto) 0.6 (0.1-0.6) K/mm3 Eos # (Auto) 0.1 (0-0.3) K/mm3 Baso # (Auto) 0.0 (0.0-0.1) K/mm3 Abs Immat Gran (auto) 0.02 (0.00-0.031) K/mm3 Absolute Neuts (auto) 5.5 (1.3-6.7) K/mm3 Absolute Nucleated RBC 0.000 (0.0-0.012) K/mm3 Nucleated RBC % 0.0 (0.0-0.2) % PT 12.9 (11.1-14.7) Seconds INR 1.0 APTT 22.4 (22.3-36.8) Seconds Sodium 137 (137-145) mmol/L Potassium 3.4 (3.4-5.0) mmol/L Chloride 103 (98-107) mmol/L Carbon Dioxide 24 (22-30) mmol/L Anion Gap 10 (4-12) mmol/L BUN 9 (7-17) mg/dL Creatinine 0.61 L (0.7-1.0) mg/dL Estim Creat Clear Calc 118 ml/min Estimated GFR > 60 (59 - ) Glucose 115 H (65-110) mg/dL Calcium 9.3 (8.4-10.2) mg/dL Total Bilirubin 0.3 (0.2-1.3) mg/dL AST 26 (14-36) U/L ALT 20 (6-35) U/L Alkaline Phosphatase 71 (38-126) U/L Troponin I < 0.012 < 0.012 (0.000-0.034) ng/mL Total Protein 7.7 (6.3-8.2) g/dL Albumin 4.4 (3.5-5.1) g/dL Lipase 98 (23-300) U/L TSH (Reflex) < 0.015 L (0.465-4.68) uIU/mL Free T4 3.66 H (0.78-2.19) ng/dL POC Urine HCG, Qual Negative (Negative) Imaging Data Radiologist's impression: Impressions Chest X-Ray 05/18/25 18:58 IMPRESSION: No focal infiltrate or effusion. ECG Data EKG #1: EKG Interpretation: normal rate, sinus rhythm, no ectopy, non-specific ST changes, normal QRS, normal QT and NL axis Discharge Plan Discharge Clinical Impression: Pleurisy Patient Disposition: Home Condition: Stable Instructions: Antibiotic Form, Chest Pain (ED) Additional Instructions: Have close follow-up with your primary care physician for your hyperthyroid. Ibuprofen for pain control. Patient Language: Swedish Prescriptions: No Action cetirizine-pseudoephedrine [Zyrtec-D] 5-120 mg tablet extended release 12 hr 1 tablet PO Q12H PRN (Reason: nasal congestion) Qty: 12 0RF dextromethorphan-guaifenesin [Mucinex DM] 60-1,200 mg tablet extended release 12 hr 1 tablet PO Q12H Qty: 12 0RF cephalexin 500 mg capsule 500 mg PO Q8H 7 Days Qty: 21 0RF erythromycin 5 mg/gram (0.5 %) ointment 1 applic LEFT EYE DAILY Qty: 3.5 0RF artificial tears(hypromellose) 0.3 % drops 1 drp LEFT EYE BID PRN (Reason: painful eye) Qty: 15 0RF acetaminophen 500 mg capsule 1,000 mg PO Q6H PRN (Reason: pain) Qty: 20 0RF homatropine HBr 5 % drops 1 drp LEFT EYE TID Qty: 5 0RF Follow-up/Referrals: PHYSICIAN,SOCIOCULTURAL ANTHROPOLOGY PROFESSOR [Primary Care Provider] - Quality HEART score for chest pain patients History: slightly suspicious ECG: normal Age: < or = to 45 years Risk factors: 1 or 2 risk factors Troponin: < or = to 1x normal limit Heart score: 1
[2025-05-18] MEDS: KETOROLAC (*BKC) 60 MG/2 ML VIAL IM (23:08)
[2025-05-18 23:09] LABS: BEDSIDEPREGUCG Negative (Negative)
[2025-05-18 23:29] LABS: Troponin I < 0.012 ng/mL (0.000-0.034)
[2025-05-18 23:48] LABS: Thyroid Stimulating Hormone Reflex < 0.015 uIU/mL (0.465-4.68)
--- NOTE | 2025-05-19 00:30 | PC.NURSE ---
Pt lying on stretcher with eyes closed, respirations even and unlabored.
[2025-05-19 01:21] VITALS: BP 117/77; PULSE 88; RESP 16; O2SAT 96
[2025-05-19 03:07] LABS: Free T4 Free Thyroxine Reflex 3.66 ng/dL (0.78-2.19)
== END 2025-05-19 01:28 | disposition home or self-care (01) ==
PROVIDERS: Emergency Medicine; Emergency Provider Emergency Medicine
DX: R09.1 Pleurisy (principal); E05.90 Thyrotoxicosis, unspecified without thyrotoxic crisis or storm
CPT/HCPCS: 36415; 71046; 80053; 81025; 83690; 84439; 84443; 84484; 85025; 85610; 85730; 93005; 96372; 99284; J1885